=== PATIENT | male | born 1945 | race Caucasian/White ===

== ENCOUNTER → 2023-10-07 15:33 | Outpatient (REF) | payer OTHER, SELFPAY | LOC: RAD 15:33 | PROVIDERS: ATTENDING PHYSICIAN Student in an Organized Health Care Education/Training Program | DX: R05.3 Chronic cough (principal) | CPT/HCPCS: 71046 ==

== ENCOUNTER → 2023-10-23 12:45 | Outpatient (REF) | payer OTHER, SELFPAY | LOC: MRI 3T 12:45 | PROVIDERS: ATTENDING PHYSICIAN Orthopaedic Surgery; FAMILY PHYSICIAN Student in an Organized Health Care Education/Training Program | DX: M25.559 Pain in unspecified hip (principal); M16.0 Bilateral primary osteoarthritis of hip | CPT/HCPCS: 73721 ==

== ENCOUNTER 2023-12-07 07:00 | Inpatient (IN) | payer OTHER, SELFPAY ==
[2023-11-14 15:01] LABS: Hematocrit 41.8 % (39.0-52.0); Hemoglobin 14.7 g/dL (13.0-18.0); Mean Corp Hgb Conc. 35.2 g/dL (33.0-37.0); Mean Corpuscular Hgb 33.2 pg (27.0-31.0); Mean Corpuscular Volume 94.4 fL (80.0-94.0); Mean Platelet Volume 11.2 fL (7.4-10.4); Platelet Count 193 10^3/uL (130-400); Red Blood Cell Count 4.43 10^6/uL (4.70-6.10); White Blood Cell Count 8.3 10^3/uL (4.8-10.8)
[2023-11-14 15:36] LABS: ALT (SGPT) 21 U/L (0-50); AST (SGOT) 23 U/L (17-59); Albumin 4.6 g/dl (3.5-5.0); Alkaline Phosphatase 72 U/L (38-126); Blood Urea Nitrogen 19 mg/dl (9-20); Calcium 9.9 mg/dl (8.4-10.2); Carbon Dioxide 21 mmol/L (22-30); Chloride 106 mmol/L (98-107); Glucose 88 mg/dl (70-99); Potassium 4.1 mmol/L (3.5-5.1); Sodium 138 mmol/L (135-145); Total Bilirubin 0.3 mg/dl (0.2-1.3); Total Protein 7.1 g/dl (6.3-8.2); eGFR > 60.00
[2023-11-15 09:23] LABS: Glycohemoglobin (HgbA1c) 6.7 % (4.0-5.6)
[2023-12-07] VITALS (14 sets, daily range): BP systolic 92–143; BP diastolic 56–85; PULSE 80; O2SAT 94; BMI 32.1
[2023-12-07] MEDS: CELEBREX 200 MG PO (07:24)
[2023-12-07] MEDS: TYLENOL 650 MG PO ×5 (07:24→23:35)
[2023-12-07 07:44] LABS: Glucose - Point of Care 179 mg/dl (70-99)
[2023-12-07] MEDS: NORMOSOL-R/PLASMALYTE-A 1000 IV ×2 (07:48→10:30)
--- NOTE | 2023-12-07 08:31 | W.DS.TRANS ---
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
-
Discharge Instructions:
Sleep Apnea Risk High
Discharge Diagnosis/Procedures R VIRGILIO Aquino 12/07/23
Diet Diabetic, Carb Controlled
Activity With Walker
Driving Restrictions No driving
Bathing Restrictions OK to Shower
Other Services PT
Instructions:
Stand-Alone Forms:
Changes to Home Medications: Yes
Discharge Medications:
DC Medications w/original date entered in [facility]
lisinopril 20 mg tablet 20 mg PO DAILY ##0 04/04/13
simvastatin 40 mg tablet 40 mg PO DAILY ##0 04/04/13
Vitamin B Complex 100 No.2 1 tab PO DAILY 04/24/17
glyburide 1.25 mg tablet 5 mg PO DAILY 04/24/17
metformin 500 mg tablet 1,000 mg PO BID 04/24/17
budesonide 160 mcg-glycopyr 9 mcg-formot 4.8 mcg/actuation HFA inhaler (Breztri Aerosphere) 2 inh inhalation BID 12/01/23
mupirocin 2 % ointment topical kit 1 applic topical BID 12/01/23
vit C 250 mg-vit E 90 mg-zinc 40 mg-copper 1 [id number] capsule (PreserVision AREDS-2) 1 tab PO BID 12/01/23
Saccharomyces boulardii 250 mg capsule (Florastor) 250 mg PO BID #1 cap 12/07/23
acetaminophen 325 mg capsule (Tylenol) 650 mg (2 x 325 mg) PO QID #2 caps 12/07/23
acetaminophen 500 mg tablet 1,000 mg (2 x 500 mg) PO QID #0 tabs 12/07/23
aspirin 325 mg tablet 325 mg PO DAILY blood clot prevention #1 tab 12/07/23
cefadroxil 500 mg capsule 500 mg PO BID infection prevention #14 caps 12/07/23
celecoxib 200 mg capsule 200 mg PO DAILY anti-inflammatory #14 caps 12/07/23
docusate sodium 100 mg capsule (Colace) 100 mg PO BID stool softner #1 cap 12/07/23
ondansetron 4 mg disintegrating tablet 4 mg PO Q6H PRN n/v #20 tabs 12/07/23
oxycodone 5 mg tablet 5 mg PO Q6H PRN 1 tab moderate pain, 2 tabs severe pain #30 tabs 12/07/23
sennosides 8.6 mg tablet (Senokot) 17.2 mg (2 x 8.6 mg) PO BID laxative #2 tabs 12/07/23
Home Medication Changes
aspirin 325 mg tablet 325 mg PO DAILY blood clot prevention #1 tab 12/07/23
cefadroxil 500 mg capsule 500 mg PO BID infection prevention #14 caps 12/07/23
celecoxib 200 mg capsule 200 mg PO DAILY anti-inflammatory #14 caps 12/07/23
ondansetron 4 mg disintegrating tablet 4 mg PO Q6H PRN n/v #20 tabs 12/07/23
oxycodone 5 mg tablet 5 mg PO Q6H PRN 1 tab moderate pain, 2 tabs severe pain #30 tabs 12/07/23
Pending Results: No
[2023-12-07 10:09] LABS: Glucose - Point of Care 156 mg/dl (70-99)
[2023-12-07] MEDS: ROXICODONE 5 MG PO ×2 (10:33→17:48)
--- NOTE | 2023-12-07 11:22 | PTCARENOTE ---
Patient received from PACU in bed; IVF infusing; Surgical site assessed with REFRIGERATION SUPERVISOR, right hip aquacell clean, dry, and intact; Bilateral pedal pulses weak to palpation; Toes cool to the touch, warm blankets applied; Capillary refill bilateral toes
<3 seconds; Patient able to wiggle toes on the left foot, not currently able to wiggle toes on the right; Patient on 2L nasal cannula, oxygen saturation 94%; Patient denies pain at this time; Patient denies nausea/vomiting at this time; Call laura
within reach; Spouse at bedside; Bed in lowest position, wheels locked; Assessment ongoing
[2023-12-07 11:30] LABS: Glucose - Point of Care 178 mg/dl (70-99)
[2023-12-07] MEDS: LIPITOR 20 MG PO (13:01)
[2023-12-07] MEDS: GLUCOPHAGE 1000 MG PO ×2 (13:01→19:48)
[2023-12-07] MEDS: NOVOLOG FLEXPEN-MODERATE RESISTANCE 1 UNITS SC ×2 (13:02→16:58)
[2023-12-07] MEDS: MICRONASE 5 MG PO (13:51)
[2023-12-07] MEDS: ANCEF 5 IV ×2 (15:00→23:35)
[2023-12-07 16:39] LABS: Glucose - Point of Care 190 mg/dl (70-99)
[2023-12-07] MEDS: ASPIRIN 325 MG PO (17:00)
[2023-12-07] MEDS: SYMBICORT 160/4.5 MCG INHALER INH (19:20)
[2023-12-07] MEDS: SENOKOT 17.2 MG PO (19:43)
[2023-12-07] MEDS: TORADOL 15 MG IV (19:43)
[2023-12-07] MEDS: COLACE 100 MG PO (19:43)
[2023-12-07] MEDS: BACTROBAN 2% OINTMENT 1 APPLIC NASAL (19:49)
[2023-12-07 21:39] LABS: Glucose - Point of Care 195 mg/dl (70-99)
[2023-12-07] MEDS: NEURONTIN 300 MG PO (21:41)
[2023-12-08] VITALS (7 sets, daily range): BP systolic 95–160; BP diastolic 54–85; PULSE 88–96; O2SAT 92
[2023-12-08] MEDS: DILAUDID 0.5 MG IV (02:36)
[2023-12-08] MEDS: TYLENOL 650 MG PO ×3 (04:09→12:48)
[2023-12-08] MEDS: ROXICODONE 10 MG PO ×3 (04:14→12:48)
[2023-12-08] MEDS: SPIRIVA RESPIMAT 2.5 MCG 2 PUFF INH (07:06)
[2023-12-08] MEDS: SYMBICORT 160/4.5 MCG INHALER 2 PUFF INH (07:07)
[2023-12-08 08:12] LABS: Glucose - Point of Care 115 mg/dl (70-99)
[2023-12-08] MEDS: NOVOLOG FLEXPEN-MODERATE RESISTANCE SC (08:14)
[2023-12-08] MEDS: ASPIRIN 325 MG PO (08:32)
[2023-12-08] MEDS: CELEBREX 200 MG PO (08:32)
[2023-12-08] MEDS: SENOKOT 17.2 MG PO (08:33)
[2023-12-08] MEDS: TORADOL 15 MG IV (08:33)
[2023-12-08] MEDS: LIPITOR 20 MG PO (08:33)
[2023-12-08] MEDS: GLUCOPHAGE 1000 MG PO (08:33)
[2023-12-08] MEDS: MICRONASE 5 MG PO (08:33)
[2023-12-08] MEDS: COLACE 100 MG PO (08:33)
[2023-12-08] MEDS: BACTROBAN 2% OINTMENT 1 APPLIC NASAL (08:39)
[2023-12-08 11:07] LABS: Glucose - Point of Care 169 mg/dl (70-99)
[2023-12-08] MEDS: NOVOLOG FLEXPEN-MODERATE RESISTANCE 1 UNITS SC (11:57)
--- NOTE | 2023-12-08 12:28 | W.PN.ORTHO ---
Today's Communication / Plan
-
d/c
Assessment
.
Distal Motor Intact: Yes
Dressing:
Clean, dry and intact.
Plan
.
Surgery / Date: Elpidio Aquino 12/07/23
DVT Prophylaxis: Aspirin
Activity:
Out of bed.
PT/OT
Discharge Plan: Home w/ Outpatient PT
Subjective
.
.:
Patient resting comfortably.
Vital Signs and Labs
.
Vital Signs and Labs:
Lab Results
11/14/23 13:19
11/14/23 13:19
Temp Pulse Resp BP Pulse Ox
98.0 F 83 18 114/62 92
12/08/23 11:00 12/08/23 11:00 12/08/23 11:00 12/08/23 11:00 12/08/23 11:00
Non-invasive Hgb result: 12.8
Physical Exam
-
HEENT: No pallor, cyanosis, or jaundice. Throat clear.
NECK: Supple. No JVD.
RESPIRATORY: Lungs clear to auscultation.
CVS: S1, S2 normal. RRR.� No murmur, rub or gallop.
ABDOMEN: Soft, non-tender. No distension. BS+/normal.
EXTREMITIES: strength equal, no calf pain with palpation
COMPUTER SYSTEMS ENGINEER: AOx3. No focal deficits. compliance monitor grossly intact
--- NOTE | 2023-12-08 13:44 | CM ---
Met with pt and his at bedside
Pt reports he lives with his in a ranch style home with 1 step to enter
Independent with ADL's, drives, retired
DME - cane, walker, raised toilet seat
SNF - denies past hx
HH - denies past hx
Has ride at discharge
PCP - Dr Marcus Munoz
Pharm - [facility]
Plan is for outpatient PT. Given Rx. Has appointment scheduled
Plan - anticipate home with outpatient PT when medically stable
== END 2023-12-08 16:00 | disposition home or self-care (01) | DRG 470 ==
LOC: 2 SOUTH 07:00
PROVIDERS: ADMITTING PHYSICIAN Orthopaedic Surgery; FAMILY PHYSICIAN Student in an Organized Health Care Education/Training Program
PROC: 0SR904A Replacement of Right Hip Joint with Ceramic on Polyethylene Synthetic Substitute, Uncemented, Open Approach (ICD-10-PCS; 2023-12-07)
DX: M16.11 Unilateral primary osteoarthritis, right hip (principal); E66.01 Morbid (severe) obesity due to excess calories; E11.9 Type 2 diabetes mellitus without complications; E78.5 Hyperlipidemia, unspecified; I10 Essential (primary) hypertension; Z82.49 Family history of ischemic heart disease and other diseases of the circulatory system; Z82.0 Family history of epilepsy and other diseases of the nervous system; Z87.891 Personal history of nicotine dependence; Z87.01 Personal history of pneumonia (recurrent); Z79.82 Long term (current) use of aspirin; Z79.1 Long term (current) use of non-steroidal anti-inflammatories (NSAID); Z79.84 Long term (current) use of oral hypoglycemic drugs; Z79.51 Long term (current) use of inhaled steroids; Z86.010 Personal history of colon polyps; Z68.32 Body mass index [BMI] 32.0-32.9, adult
CPT/HCPCS: 36415; 73502; 80053; 82962; 83036; 85027; 87070; 93005; 94640; 97110; 97116; 97162; 97166; 97530; 97535; C1776

== ENCOUNTER 2024-03-26 11:57 | Inpatient (IN) | payer OTHER, SELFPAY ==
[2024-03-25 22:52] VITALS: BP 159/99
[2024-03-26] VITALS (20 sets, daily range): BP systolic 106–163; BP diastolic 56–94; PULSE 91–99; BMI 31.3; BMI 31.2
--- NOTE | 2024-03-26 00:42 | EDRN ---
slipped out of bed. This is the third fall since R hip replacement. R hip 12/07/23. Pt states that he has pain in that R hip area. Last fall pt hit his head R side. Area ecchymotic. Pt does not know why he slipped out of bed. unable to get him
off the floor. Pt able to stand. Pt shuffling his feet when he walks. Pt unsure of how he slipped out of bed.
--- NOTE | 2024-03-26 01:13 | ED.GENMED ---
History of Present Illness
General
Chief Complaint: Fall
Source: patient and spouse
Exam Limitations: none
Time Seen by Provider: 03/26/24 00:50
History of Present Illness
History of Present Illness:
This is a 78 year old male that comes in with by ambulance with c/o fall. States that tonight he got up to go to the bathroom. States that he turned on the lights and then next thing he knew they were trying to get him up of the floor. States that
he doesn't remember falling. states that on Tuesday he was Annelise and he fell then and doesn't remember. States that someone there had to help get him up. States that he did have a headache on Tuesday before that fall. States that he has had
diarrhea occasionally. Denies any fever, chills, chest pain, SOB, abd pain, nausea, vomiting, dizziness, urinary burning.
Past History
Past History
ED Past Medical History: HTN, Hypercholesterolemia, NIDDM and Other (Chronic cough, Macular degeneration, )
ED Past Surgical History: Appendectomy and Orthopedic (Right foot bunionectomy, Right hip replacement )
Social History
Tobacco: Smoker
Alcohol: Occasional
Personal:
Living: with family
Family History
Family History: Unable to obtain
Review of Systems
Review of Systems
All Other Systems: ROS reviewed and negative except as documented in HPI and ROS
Constitutional: Reports no symptoms; Denies fever or chills
EENT: Reports no symptoms
Respiratory: Reports no symptoms; Denies cough or trouble breathing
Cardiac: Reports no symptoms; Denies chest pain
ABD/GI: Reports diarrhea; Denies abdominal pain, nausea or vomiting
: Reports no symptoms; Denies dysuria, frequency or urgency
Musculoskeletal: Reports no symptoms
Skin: Reports no symptoms
Neurological: Reports headache (On Tuesday with first fall); Denies dizzy
Psychiatric: Reports no symptoms
Phy Exam
General Physical Exam
General Presentation: no apparent distress
General age: appears stated age
General Skin: warm and dry
General Habitus: elderly
General Mental: alert
General Hydration: appears well hydrated
ENT Exam
ENT Exam: TM's normal, pharynx normal and neck supple
Eye Exam
Eye Exam: EOMI
Cardiovascular Exam
Cardiovascular Exam: regular rate/rhythm, no edema and normal peripheral pulses
Pulmonary Exam
Pulmonary Exam: no respiratory distress, chest non tender, no rhonchi, no wheezing, no cough and other (fine crackles at bases)
Gastrointestinal Exam
Gastrointestinal Exam: normal bowel sounds, non tender, soft, no organomegaly, no pulsatile mass and non distended
Musculoskeletal Exam
Musculoskeletal Exam: full ROM and no edema
Skin Exam
Skin Exam: normal color, warm/dry, no rash, no petechia and other (Old bruising noted around right lateral forehead and eye onto upper cheek. )
Psychiatric Exam
Psychiatric Exam: normal mood/affect
Course
Orders/Labs/Results
Orders:
Orders
03/26/24 00:09
CR Hip - RT w/wo Pel 2-3 Vw* Urgent
Reason For Exam: fall, injury, and pain
Include a pelvis x-ray?: Yes
03/26/24 01:11
CT Head W/o Iv Contrast Urgent
Comment:
Reason For Exam: Frequent falls, headache
Urinalysis Reflex To Culture Urgent
CR Chest - 2 Views Urgent
Comment:
Reason For Exam: weakness.
03/26/24 01:12
Electrocardiogram (*1) Urgent
Reason for Study: Syncope
EKG- Treatment ONCE
0.9% Sodium Chloride 500 ml [Nss] 500 ml IV BOLUS
03/26/24 01:16
Orthostatic VS- Treatment ONCE
03/26/24 01:20
Complete Blood Count/With Diff Urgent
Comprehensive Metabolic Panel Urgent
Troponin I Urgent
Abnormal Lab Results
03/26/24
01:20
WBC 12.6 H 10^3/uL
(4.8-10.8)
RBC 4.34 L 10^6/uL
(4.70-6.10)
MCH 32.3 H pg
(27.0-31.0)
MPV 10.6 H fL
(7.4-10.4)
Abs Immat Gran (auto) 0.1 H 10^3/uL
(0-0.05)
Absolute Neuts (auto) 10.1 H 10^3/uL
(1.4-6.5)
Absolute Monos (auto) 1.1 H 10^3/uL
(0.1-0.6)
Neutrophils % 79.9 H %
(42.2-75.2)
Lymphocytes % 10.9 L %
(20.5-51.1)
Glucose 157 H mg/dl
(70-99)
Troponin I 0.040 H* ng/ml
03/26/24 01:20
03/26/24 01:20
Leukocytosis, Hyperglycemia. Troponin elevated at 0.040
Vital Signs
Initial and Last Documented VS:
Initial Vital Signs
Temp Pulse Resp BP Pulse Ox
99.5 F 127 20 159/99 98
03/25/24 22:52 03/25/24 22:52 03/25/24 22:52 03/25/24 22:52 03/25/24 22:52
Last Documented Vital Signs
Temp Pulse Resp BP Pulse Ox
99.5 F 99 23 159/99 95
03/25/24 22:52 03/26/24 00:56 03/26/24 00:56 03/25/24 22:52 03/26/24 00:56
MDM/Problems Addressed
Differential Diagnosis Includes:
UTI, Orthostatic hypotension. Dehydration.
MDM/Problems Addressed:
This is a 78 year old male that comes in with c/o fall. States that he fell on Tuesday and he went to go to the Bathroom and turned on the light and then next thing he knew they were trying to get him up. States that he doesn't remember
what happened.
Will check labs. CT head, Urine and give IV fluids.
Back into see patient and . Explained that his Troponin is slightly elevated and this is the second Time that he has fallen and doesn't remember. Will admit for further evaluation. Hospitalist notified.
Chronic conditions affecting care: DM
Acute Exacerbation and/or Progression of Chronic Illness:
NA
*Radiology
Radiology exam reviewed: preliminary read by ED provider (Chest- negative for active disease. Right hip- Prosthesis noted, No acute fracture. ) and radiology read reviewed (CT head- night hawk-No acute hemorrhage, herniation, or hydrocephalus. No
calvarial fracture. Left maxillary sinus mucosal thickening. )
*Pulse Oximetry
Patient hypoxic: no
*EKG
Interpreted by ED Provider?: Yes
Heart Rate: 95
Rate: normal
Rhythm: sinus
[place]: normal axis
Interval: normal interval
QRS Pattern: normal QRS
Ischemia: no ischemia
*Assistant Chief Of Police Interpretation
Rate: tachycardiac
Heart Rate: 100
Rhythm: sinus tachycardia
*Critical Care Note
Total Time (30-74mins, 75-104mins- exclusive of procedures): Not Applicable
ED Attending Note
-
Portions of this chart may have been created with voice recognition software.� Occasional wrong word or��sound alike� substitutions may have occurred due to the inherent limitations of voice recognition software.
Discharge Plan
Departure
Patient Disposition: Admit
Date of Disposition: 03/26/24
Time of Disposition: 03:01
Admit to: Telemetry
Presentation/result/management discussed w/ accepting MD/DO: Hospitalist
Patient with high blood pressure during this ER visit?: Yes
Condition: Good
Covid-19: Not Applicable
Discharge Problem:
Syncope and collapse, Elevated troponin
Prescriptions:
No Action
lisinopril 20 MG tablet
20 mg PO DAILY Qty: 0 0RF
Rx Instructions:
One tab by mouth daily.
simvastatin 40 MG tablet
40 mg PO DAILY Qty: 0 0RF
Rx Instructions:
One tab by mouth every evening.
glyburide 1.25 MG tablet
5 mg PO DAILY
Vitamin B Complex 100 No.2
1 tab PO DAILY
metformin 500 MG tablet
1,000 mg PO BID
PreserVision AREDS-2 250-90-40-1 mg Capsule
1 tab PO BID
Breztri Aerosphere 160-9-4.8 mcg/actuation Hfa Aerosol Inhaler
2 inh INHALATION BID
mupirocin 2 % Ointment Kit
1 applic TOPICAL BID
Patient Comments:
BID for 3 days, last dose this am
aspirin 325 mg tablet
325 mg PO DAILY Qty: 1 0RF
Rx Instructions:
Take with food
docusate sodium [Colace] 100 mg capsule
100 mg PO BID Qty: 1 0RF
cefadroxil 500 mg capsule
500 mg PO BID Qty: 14 0RF
Rx Instructions:
*Take w/ food
*Take w/ probiotic
*POST-OP USE
Saccharomyces boulardii [Florastor] 250 mg capsule
250 mg PO BID Qty: 1 0RF
celecoxib 200 mg capsule
200 mg PO DAILY Qty: 14 0RF
Rx Instructions:
*take with food
*space out 2 hours from aspirin
sennosides [Senokot] 8.6 mg tablet
17.2 mg PO BID Qty: 2 0RF
ondansetron [ondansetron] 4 mg tablet,disintegrating
4 mg PO Q6H PRN (Reason: n/v) Qty: 20 0RF
Rx Instructions:
take 1/2h b/f pain med if recurrent nausea
allow to dissolve in mouth w/o water
oxycodone 5 mg tablet
5 mg PO Q6H PRN (Reason: 1 tab moderate pain, 2 tabs severe pain) Qty: 30 0RF
Rx Instructions:
Ongoing therapy
acetaminophen [Tylenol] 325 mg capsule
650 mg PO QID Qty: 2 0RF
acetaminophen 500 mg Tablet
1,000 mg PO QID Qty: 0 0RF
Referrals:
Julia Munoz MD [Family Provider] -
Interventions
Interventions:
*Risk Screen - Suicide Last Done: 03/25/24 22:56
*General Assessment Last Done: 03/26/24 00:38
*Neglect/Abuse Screening Last Done: 03/25/24 22:56
ED- Fall Risk Assessment Last Done: 03/26/24 00:38
*ED COVID-19 Vaccine History Last Done: 03/25/24 22:56
ED-Musculoskeletal Assessment Last Done: 03/26/24 00:38
ED- Neurological Assessment Last Done: 03/26/24 00:38
ED-Skin Assessment Last Done: 03/26/24 00:38
Discharge Date and Time
Print Language: BELARUSIAN
[2024-03-26 01:35] LABS: % Basophils 0.2 % (0-2); % Eosinophils 0.2 % (0-6); % Immature Granulocytes 0.4 % (0-0.5); % Lymphocytes 10.9 % (20.5-51.1); % Monocytes 8.4 % (1.7-9.3); % Neutrophils 79.9 % (42.2-75.2); Absolute Immature Granulocytes 0.1 10^3/uL (0-0.05); Absolute Lymphocytes 1.4 10^3/uL (1.2-3.4); Absolute Monocytes 1.1 10^3/uL (0.1-0.6); Absolute Neutrophils 10.1 10^3/uL (1.4-6.5); Hematocrit 40.2 % (39.0-52.0); Mean Corp Hgb Conc. 34.8 g/dL (33.0-37.0); Mean Corpuscular Hgb 32.3 pg (27.0-31.0); Mean Corpuscular Volume 92.6 fL (80.0-94.0); Mean Platelet Volume 10.6 fL (7.4-10.4); Nucleated Red Blood Cells % 0 % (-); Platelet Count 180 10^3/uL (130-400); Red Blood Cell Count 4.34 10^6/uL (4.70-6.10); Red Cell Dist. Width 12.6 % (11.5-14.5); White Blood Cell Count 12.6 10^3/uL (4.8-10.8)
[2024-03-26 01:53] LABS: ALT (SGPT) 21 U/L (0-50); AST (SGOT) 23 U/L (17-59); Albumin 4.3 g/dl (3.5-5.0); Alkaline Phosphatase 56 U/L (38-126); Blood Urea Nitrogen 20 mg/dl (9-20); Calcium 10.1 mg/dl (8.4-10.2); Carbon Dioxide 22 mmol/L (22-30); Chloride 102 mmol/L (98-107); Estimated Creatinine Clearance 102 ml/min; Glucose 157 mg/dl (70-99); Potassium 3.8 mmol/L (3.5-5.1); Sodium 137 mmol/L (135-145); Total Bilirubin 0.6 mg/dl (0.2-1.3); Total Protein 6.9 g/dl (6.3-8.2); eGFR > 60.00
[2024-03-26] MEDS: NSS 500 IV (02:02)
--- NOTE | 2024-03-26 03:22 | HPS.HSE ---
Family Physician
-
Family Physician: Julia Munoz MD
Chief Complaint
-
Syncopal episode
History of Present Illness
This is a 78-year-old male with past medical history significant for [id number]-[id number] diabetes, hypertension, obesity presenting to the emergency department following episode of collapse.
Patient is unable to provide details because he does not remember the event. He reports being in usual state of health the evening prior to the event. For the last he remembered was trying to get up to reach for right and then finding himself on
the floor with EMS and his spouse surrounding him. He does not remember feeling dizzy. Denied having any chest pain. He denied any recent exertional dyspnea. He denies any recent episodes of palpitations. He denied any nausea vomiting or
diaphoresis. Patient denies any history of seizures. Status post fall the patient was immediately alert and oriented again but could not get up. There was no loss of bladder or bowel continence.
He reported that approximately 4 days ago he had a mechanical fall. He slipped and hit his forehead on the floor. He had minor bruises and a headache but then felt better afterwards and was able to carry on without any other symptoms. He also
reports having a fall about 10 days ago at this time slipping backwards and hitting the back of his head. He denies any numbness tingling or weakness. He denies any changes in the bowel or bladder habits. Patient denies any melena or
hematochezia. He has no known sick contact. He denies any recent cold cough or flulike illness. He has been no medication changes. Per records states that on Tuesday he was Annelise and he fell then and doesn't remember. States that someone
there had to help get him up. States that he did have a headache on Tuesday before that fall.
In the emergency department he was afebrile, blood pressure was 160/99 with a pulse of 90, ECG showed a normal sinus rhythm. Known inferior Q waves present since 2012. His troponin was 0.04. CBC was unremarkable with a slight leukocytosis to
12,000. Electrolytes BUN/creatinine were within the normal range. Chest x-ray was clear. CT of the head shows no acute intracranial process. Hip x-ray without any fracture.
Medical History
Past Medical History
Past Medical History: Reports HTN and NIDDM
Past Surgical History: Reports Appendectomy
Social History
Tobacco: Former Smoker
Alcohol: Occasional
Drug: None
Personal:
Living: With Family
Employment: Retired
Family History
Family History: Not pertinent
Allergies / Home Medications
Allergies reflects when Allergies were last updated in [facility].
Home Medications with original date entered in [facility]
Allergy/Medication List:
Allergies
Allergy/AdvReac Type Severity Reaction Status Date / Time
No Known Allergies Allergy Verified 12/07/23 07:51
Home Medications
lisinopril 20 mg tablet 20 mg PO DAILY ##0 04/04/13
simvastatin 40 mg tablet 40 mg PO DAILY ##0 04/04/13
Vitamin B Complex 100 No.2 1 tab PO DAILY 04/24/17
glyburide 1.25 mg tablet 5 mg PO DAILY 04/24/17
metformin 500 mg tablet 1,000 mg PO BID 04/24/17
budesonide 160 mcg-glycopyr 9 mcg-formot 4.8 mcg/actuation HFA inhaler (Breztri Aerosphere) 2 inh inhalation BID 12/01/23
mupirocin 2 % ointment topical kit 1 applic topical BID 12/01/23
vit C 250 mg-vit E 90 mg-zinc 40 mg-copper 1 [id number]-nporcw capsule (PreserVision AREDS-2) 1 tab PO BID 12/01/23
Saccharomyces boulardii 250 mg capsule (Florastor) 250 mg PO BID #1 cap 12/07/23
acetaminophen 325 mg capsule (Tylenol) 650 mg (2 x 325 mg) PO QID #2 caps 12/07/23
acetaminophen 500 mg tablet 1,000 mg (2 x 500 mg) PO QID #0 tabs 12/07/23
aspirin 325 mg tablet 325 mg PO DAILY blood clot prevention #1 tab 12/07/23
cefadroxil 500 mg capsule 500 mg PO BID infection prevention #14 caps 12/07/23
celecoxib 200 mg capsule 200 mg PO DAILY anti-inflammatory #14 caps 12/07/23
docusate sodium 100 mg capsule (Colace) 100 mg PO BID stool softner #1 cap 12/07/23
ondansetron 4 mg disintegrating tablet 4 mg PO Q6H PRN n/v #20 tabs 12/07/23
oxycodone 5 mg tablet 5 mg PO Q6H PRN 1 tab moderate pain, 2 tabs severe pain #30 tabs 12/07/23
sennosides 8.6 mg tablet (Senokot) 17.2 mg (2 x 8.6 mg) PO BID laxative #2 tabs 12/07/23
Review of Systems
-
History Source: Patient
Constitutional: Reports No Symptoms
EENT: Reports No Symptoms
Respiratory: Reports No Symptoms
Cardiac: Reports No Symptoms
Abdomen/GI: Reports No Symptoms
: Reports No Symptoms
Musculoskeletal: Reports No Symptoms
Skin: Reports No Symptoms
Neurological: Reports No Symptoms
Endocrine: Reports No Symptoms
Hematologic/Lymphatic: Reports No Symptoms
Psych: Reports No Symptoms
Physical Exam
Vital Signs
Vital Signs
Temp Pulse Resp BP Pulse Ox
99.5 F 99 23 159/99 95
03/25/24 22:52 03/26/24 00:56 03/26/24 00:56 03/25/24 22:52 03/26/24 00:56
Physical Exam
General: Well Developed, No Apparent Distress, Comfortable and Conversant
HEENT: NormoCephalic, Anicteric, Moist mucous membranes, PERRLA, Neck Nontender and Other (mild forehead bruise)
Respiratory: Clear
Cardiac: S1/S2 and Regular Rhythm
Breast: Deferred by me
GI: Soft, Non Tender, Normal Bowel Sounds and Distended
Rectal: Deferred by Provider
Genito-urinary: Deferred by me
Musculoskeletal: No Clubbing, No Cyanosis and No Edema
Skin: Warm
Neuro: AO x 3, No Motor Deficits and Nonfocal/grossly intact
Hematologic/Lymphatic: No Lymphadenopathy
Psych: Calm
Laboratory Results
-
03/26/24 01:20
03/26/24 01:20
Laboratory Results
Total Bilirubin 0.6 mg/dl (0.2-1.3) 03/26/24 01:20
AST 23 U/L (17-59) 03/26/24 01:20
ALT 21 U/L (0-50) 03/26/24 01:20
Alkaline Phosphatase 56 U/L (38-126) 03/26/24 01:20
Troponin I 0.040 ng/ml H* 03/26/24 01:20
Data Reviewed
-
Diagnostic Radiology: Image Personally Visualized and interpreted
CT Scan: Report Reviewed by me
Medical Tests (Nuc Med, Echo, EKG etc): Image Personally Visualized and interpreted
Lab Data: Labs Reviewed by me
Old Records: Reviewed
Impression/Plan
-
IMPRESSION:
Patient with syncopal episode today and collapse. He has had 3 falls in the last 10 days most of which cannot be fully explained. Patient denies any antecedent symptoms before the falls. He has not had prior falls for these recent episodes.
Neurologically intact otherwise. Troponin was 0.04 today. ECG is unremarkable. Labs are also within normal limits.
PLAN:
1. Syncope - No prior syncopal episode. Not post-ictal. No focal deficits. Given collapse w/o antecedent memory concern for cardiac arrythmia but has no h/o CAD no symptoms c/w CAD, paroxysmal rhythms. No evidence of volume losses and appears
euvolemic on examination.
- admit to telemetry observation
- cycle cardiac enzymes
- echo
- orthostatic v/s
- check carotid u/s
- may need continued ambulatory monitoring
2. Recurrent falls - possibly related to syncopal event vs ambulatory dysfunction. No focal deficits.
- syncope eval as above
- pt evaluation
3. HTN
- continue lisinopril unless orthostatic
4. DM II
- hold metformin
- continue glyubride 5 daily with low dose sliding scale
DVT PPX - lovenox sq
Code status - full code
--- NOTE | 2024-03-26 05:38 | PTCARENOTE ---
Pt arrive to [facility] at 0455 from the ED on a stretcher. Full head to toe assessed. Admission questions answered. Pt oriented to room and call laura. Bed locked and in lowest position. Care ongoing.
[2024-03-26 05:53] LABS: Troponin I 0.054 ng/ml
[2024-03-26 06:24] LABS: Urine Albumin 1+ (Neg - Trace); Urine Bilirubin Negative (Negative); Urine Character Clear (Clear); Urine Color Amber; Urine Glucose Negative (Negative); Urine Ketone Trace (Negative); Urine Leukocyte Negative (Negative); Urine Nitrite Negative (Negative); Urine Occult Blood Negative (Negative); Urine Specific Gravity 1.025 (<1.030); Urine Urobilinogen Negative (Neg - 1+)
[2024-03-26 07:05] LABS: Urine Amorphous Seen; Urine Mucus Moderate; Urine Red Blood Cell 0-2 /HPF (0-2); Urine Squamous Cell >30 /LPF (Few); Urine White Cell 0-2 /HPF (0-5)
[2024-03-26 07:06] LABS: Urine Bacteria Moderate (Negative); Urine Calcium Oxalate Crystals Seen
[2024-03-26 07:27] LABS: HDL Cholesterol 43 mg/dl; LDL Cholesterol, Calculated 65 mg/dl; Total Cholesterol 125 mg/dl (50-199); Triglyceride 88 mg/dl (10-149); Very Low Density Lipoprotein 17 mg/dl (0-30)
[2024-03-26 07:28] LABS: Troponin I 0.057 ng/ml
[2024-03-26 08:48] LABS: Glucose - Point of Care 140 mg/dl (70-99)
[2024-03-26] MEDS: NOVOLOG FLEXPEN-LOW RESISTANCE SC ×3 (08:54→18:18)
[2024-03-26] MEDS: MICRONASE 5 MG PO (09:21)
[2024-03-26] MEDS: LIPITOR 20 MG PO (09:21)
[2024-03-26] MEDS: ZESTRIL 20 MG PO (09:21)
--- NOTE | 2024-03-26 11:37 | CON.CAR ---
Addendum entered and electronically signed by Andrea Watt MD 03/26/24 14:06:
Patient seen and examined in collaboration with [facility]; agree with below.
-78-year-old male with hypertension, hyperlipidemia, diabetes, and chronic cigarette smoking presenting after a syncopal event at home.
-Transthoracic echocardiogram today revealed an LVEF of 60%, but basal to mid inferior and inferolateral hypokinesis/akinesis.
-Troponins very mildly elevated; possible subacute infarct (NSTEMI).
-Will arrange cardiac catheterization today for definitive coronary assessment.
-Heparin drip.
-Keep NPO.
Original Note:
Consultation
Consultation Request
Date/Time Consultation Requested: 03/26/2024 11:15
Date/Time Consultation Performed: 03/26/2024 11:30
Requesting Provider: Dr. Leon
Performing Provider: OMAYRA Alfonso for Dr. Watt
Reason for Consultation: Abnormal echocardiogram
Medical History
-
Chief Complaint: Fall
History of Present Illness:
Dona Alvarez is a 78-year-old male with hypertension, dyslipidemia, NIDDM, and macular degeneration who presented to the emergency department early this morning with a chief complaint of a fall. He sustained a fall while in [facility] on 03/21/2024.
Then yesterday he got up to use the bathroom and he fell. He does not recall the full event. No associated symptoms of chest pain, shortness of breath, nor dizziness. He was found to have an abnormal troponin which prompted an echocardiogram.
His echocardiogram was then abnormal which prompted cardiology consultation.
His was present for this consultation.
Past Medical History
Past Medical History: HTN, Hypercholesterolemia and NIDDM
Past Surgical History: Appendectomy and Orthopedic
Social History
Personal:
Living: With Family ()
Employment: Retired
Family History
Family History: Reviewed & Not Pertinent
Allergies / Home Medications
Allergy/AdvReac Type Severity Reaction Status Date / Time
No Known Allergies Allergy Verified 12/07/23 07:51
�Medication �Instructions �Recorded �Confirmed �Type
lisinopril 20 mg tablet 20 mg PO DAILY ##0 04/04/13 12/07/23 Rx
simvastatin 40 mg tablet 40 mg PO DAILY ##0 04/04/13 12/07/23 Rx
Vitamin B Complex 100 No.2 1 tab PO DAILY 04/24/17 12/07/23 History
glyburide 1.25 mg tablet 5 mg PO DAILY 04/24/17 12/07/23 History
metformin 500 mg tablet 1,000 mg PO BID 04/24/17 12/07/23 History
budesonide 160 mcg-glycopyr 9 2 inh inhalation BID 12/01/23 12/07/23 History
mcg-formot 4.8 mcg/actuation HFA
inhaler (Breztri Aerosphere)
mupirocin 2 % ointment topical kit 1 applic topical BID 12/01/23 12/07/23 History
vit C 250 mg-vit E 90 mg-zinc 40 1 tab PO BID 12/01/23 12/07/23 History
mg-copper 1 [id number]
capsule (PreserVision AREDS-2)
Saccharomyces boulardii 250 mg 250 mg PO BID #1 cap 12/07/23 Rx
capsule (Florastor)
acetaminophen 325 mg capsule 650 mg (2 x 325 mg) PO QID #2 caps 12/07/23 Rx
(Tylenol)
acetaminophen 500 mg tablet 1,000 mg (2 x 500 mg) PO QID #0 12/07/23 12/07/23 Rx
tabs
aspirin 325 mg tablet 325 mg PO DAILY blood clot 12/07/23 Rx
prevention #1 tab
cefadroxil 500 mg capsule 500 mg PO BID infection prevention 12/07/23 Rx
#14 caps
celecoxib 200 mg capsule 200 mg PO DAILY anti-inflammatory 12/07/23 Rx
#14 caps
docusate sodium 100 mg capsule 100 mg PO BID stool softner #1 cap 12/07/23 Rx
(Colace)
ondansetron 4 mg disintegrating 4 mg PO Q6H PRN n/v #20 tabs 12/07/23 Rx
tablet
oxycodone 5 mg tablet 5 mg PO Q6H PRN 1 tab moderate 12/07/23 Rx
pain, 2 tabs severe pain #30 tabs
sennosides 8.6 mg tablet (Senokot) 17.2 mg (2 x 8.6 mg) PO BID 12/07/23 Rx
laxative #2 tabs
Review of Systems
-
History Source: Patient
All other systems: Negative unless noted
Constitutional: Fatigue
EENT: No Symptoms
Respiratory: No Symptoms
Cardiac: No Symptoms
Abdomen/GI: No Symptoms
: No Symptoms
Musculoskeletal: No Symptoms
Skin: No Symptoms
Neurological: No Symptoms
Endocrine: No Symptoms
Hematologic/Lymphatic: No Symptoms
Physical Exam
Vital Signs
Temp Pulse Resp BP Pulse Ox
99.4 F 106 20 146/71 97
03/26/24 05:24 03/26/24 05:24 03/26/24 05:24 03/26/24 05:24 03/26/24 05:24
Lab Results
03/26/24 01:20
03/26/24 01:20
Troponin I 0.057 ng/ml H* 03/26/24 06:31
Physical Exam
General: Well Developed, Well Nourished, No Apparent Distress and Comfortable
HEENT: Normocephalic, Anicteric and Moist Mucous Membranes
Respiratory: Clear and Non Labored Respirations
Cardiac: S1/S2 and Regular Rhythm; Negative Peripheral Edema
Breast: Deferred by me
GI: Soft, Non Tender, Non Distended and Normal Bowel Sounds
Rectal: Deferred by Provider
Genito-urinary: No Costovertebral Tender
Musculoskeletal: No Clubbing, No Cyanosis and No Edema
Skin: Warm and Dry
Neuro: AO x 3
Hematologic/Lymphatic: No Lymphadenopathy
Psych: Calm
Impression / Plan
-
IMPRESSION/PLAN: 78M with HTN, HLD, and NIDDM presented with a fall. He was found to have an abnormal troponin which led to an abnormal echocardiogram.
NSTEMI
-Inferior infarct on EKG present since 2012
-Basal to mid inferior and inferior lateral hypokinesis/akinesis on echocardiogram
-ASA 324mg x 1 now and start heparin gtt
-Cardiac catheterization today
Hypertension, continue lisinopril
NIDDM, last outpatient HgbA1c 7.0%, update
Dyslipidemia, LDL 65 on simvastatin
SUBJECTIVE:
As above
DATA:
Echocardiogram, 03/26/2024:
CONCLUSIONS
LV ejection fraction is 60-65%. Basal to mid inferior and inferolateral
hypokinesis/akinesis.
Normal right ventricular size and function.
Aortic sclerosis without stenosis.
No prior study available for comparison.
Data Reviewed
-
EKG: Report Reviewed by me
Labs: Labs Reviewed by me
Old Records: Reviewed
--- NOTE | 2024-03-26 12:00 | CM ---
Reviewed the chart notes and spoke to the patient's spouse at the bedside. Patient was off floor for testing. The patient has had multiple falls. The patient is admitted for syncope. Patient's status has been changed to inpatient. The patient
resides with his spouse in a one story home with one step to enter. The patient has in the home a cane, rolling walker, and raised toilet seat. The patient has not had VN or been to a SNF in the past. The patient's pharmacy of choice is the [facility] and his PCP is Dr. Julia Bautista. Per attending, patient going for hearth cath today. CM continues to be available to patient/family and is monitoring medical plan for needs at discharge.
Plan: Discharge plans will depend on the patient's progress.
[2024-03-26 12:09] LABS: Glucose - Point of Care 126 mg/dl (70-99)
[2024-03-26 13:03] LABS: Hematocrit 41.2 % (39.0-52.0); Hemoglobin 14.4 g/dL (13.0-18.0); Mean Corpuscular Hgb 33.1 pg (27.0-31.0); Mean Corpuscular Volume 94.7 fL (80.0-94.0); Mean Platelet Volume 10.7 fL (7.4-10.4); Platelet Count 176 10^3/uL (130-400); Red Blood Cell Count 4.35 10^6/uL (4.70-6.10); Red Cell Dist. Width 12.8 % (11.5-14.5); White Blood Cell Count 9.5 10^3/uL (4.8-10.8)
[2024-03-26 13:06] LABS: Glycohemoglobin (HgbA1c) 6.6 % (4.0-5.6)
[2024-03-26 13:15] LABS: APTT 32.3 Sec (23.4-35.0)
[2024-03-26] MEDS: LOW STRENGTH ASPIRIN 324 MG PO (13:26)
[2024-03-26] MEDS: HEPARIN 25000 UNITS/250 ML 10 IV (13:37)
[2024-03-26] MEDS: HEPARIN 4000 UNITS IV (13:44)
--- NOTE | 2024-03-26 15:05 | W.PN.HOSP.TC ---
Today's Communication/Plan
-
Left heart cath.
Assessment / Plan
Assessment / Plan
Impression:
Presentation with multiple falls and syncope at home
Patient's reported hypotension
Non-Q wave NC suspect subacute.
Essential hypertension
Amb-nfxowuq-opvutarli diabetes
Dyslipidemia.
Tobacco use disorder
Plan:
Syncope with multiple falls at home.
Neurologically with no focal findings
CT scan of the head with no acute abnormalities
No seizure reported.
Carotid ultrasound with right ICA stenosis at greater than 70%. Asymptomatic at this point. Will need vascular surgery follow-up
Non-Q wave NC.
Echocardiogram with preserved LVEF 60%, although with mild inferior and inferior lateral hypokinesis/akinesis.
Cardiology consultation
Aspirin
Initiated on IV heparin
Statin
Ischemic evaluation with left heart cath today
Essential hypertension continue lisinopril.
Patient is report relative hypotension that likely contributing to syncopal episode.
Reassess hemodynamics and volume status postcatheterization
Type 2 diabetes
Hemoglobin A1c 6.6.
Hold glyburide, metformin acutely.
Basal bolus protocol with serial Accu-Cheks
Anticipated Discharge: 24 - 48 hours
Subjective/Interval History
-
Date of Service: March 26, 2024
Objective Data
-
Labs:
Laboratory Results
03/26/24 03/26/24
12:53 19:50
WBC 9.5
Hgb 14.4
Hct 41.2
Plt Count 176
APTT 32.3 Pending
Vital Signs:
Vital Signs
Temp Pulse Resp BP Pulse Ox
97.6 F 94 18 132/87 94
03/26/24 11:00 03/26/24 11:00 03/26/24 11:00 03/26/24 11:00 03/26/24 11:00
I&O
03/25/24 03/26/24 03/27/24
06:59 06:59 06:59
Intake Total 120 / 120
Output Total 200 / 200
Balance -80 / -80
Physical Exam
-
General: Well Developed and No Apparent Distress
HEENT: Normocephalic, Atraumatic and Moist Mucous Membranes
Respiratory: Clear to Auscultation
Cardiac: Regular Rhythm and S1/S2; Negative Murmur, Rub or Gallop
GI: Soft, Nontender, Nondistended and Normal Bowel Sounds; Negative Organomegaly
Rectal: Deferred by Provider
Musculoskeletal: No Clubbing, No Cyanosis and No Edema
Skin: Negative Rash
Neuro: Nonfocal/Grossly Intact
--- NOTE | 2024-03-26 15:45 | PTCARENOTE ---
Pt received from the Cardiac cath lab nurse via bed. Pt is AAOx3, VSS, Pt is afebrile. Pt wiith Vascular band to right wrist. Bruise noted at insertion site. No bleeding noted at this time. Fingers are warm with good capillary refill. Call laura is within
reach. Will continue to monitor.
--- NOTE | 2024-03-26 16:02 | ITS.CL.CATH ---
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
Cardiac Catheterization
Procedure Report:
CARDIAC CATHETERIZATION REPORT
Date of Procedure: 03/26/2024
Referring: Andrea Watt M.D.
INDICATION: Syncope, abnormal troponin, new cardiomyopathy.
PROCEDURE:
1. Left heart catheterization.
2. Coronary angiography.
ACCESS:
6 British right radial artery.
CATHETERS:
1. 5 British JR4.
2. 5 British JL 3.5.
HEMODYNAMIC DATA
Weight (kg): 98.5
AO (s/d/x, mmHg): 125/80/99
LV (s/x mmHg): 127/15
LEFT VENTRICULOGRAPHY: Not performed.
CORONARY ANGIOGRAPHY
Dominance: Right.
Left Main: Large size, trifurcating vessel. There is no coronary artery disease.
LAD: Large size vessel wrapping around the apex with several small diagonals. There are luminal irregularities in the proximal and mid vessel.
Ramus: Large size vessel supplying much of the lateral and anterolateral wall. There are minor luminal irregularities.
Circumflex: Normal size, nondominant vessel that is essentially a single large marginal supplying the inferolateral wall. There is moderate tortuosity. There is a 40% lesion in the mid vessel.
RCA: Normal size, dominant vessel. The vessel is chronically totally occluded in its proximal margin. The RPDA is supplied by collaterals from the distal LAD.
INTERVENTION(S)
None.
Closure Device: Vascular band.
Radiation (mGy): 424.83
DAP (cm2.Gy): 24.8415
Fluoroscopy time (minutes): 1.9
Sedation time (minutes): 27
CONCLUSIONS
1. 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
2. Normal filling pressures (LVEDP = 15 mmHg at 98.5 kg).
RECOMMENDATIONS:
1. Expectant management after cardiac catheterization via right radial approach.
2. Limited weight bearing on the right wrist for one week.
3. Aggressive secondary prevention with high-dose, high potency statin and aspirin 81 mg daily.
4. Guideline directed medical therapy as hemodynamics will tolerate.
5. Consider potential arrhythmia genic sources of syncope, including scar mediated VT given CARD SELLER of proximal RCA and inferior hypokinesis on echocardiography.
Copy to: Andrea Watt M.D., Julia Munoz M.D.
Wili Lyon DO, FACC, FACP
[2024-03-26 16:42] LABS: Glucose - Point of Care 95 mg/dl (70-99)
[2024-03-26 21:24] LABS: Glucose - Point of Care 113 mg/dl (70-99)
[2024-03-26] MEDS: TYLENOL 650 MG PO (22:45)
[2024-03-26] MEDS: DESENEX/MITRAZOL/ZEASORB 1 APPLIC TOPICAL (23:14)
[2024-03-27 00:11] VITALS: BP 166/90
[2024-03-27 03:28] VITALS: BP 121/75; BP 132/68; BP 137/75; PULSE 105; PULSE 87; PULSE 89
[2024-03-27 06:42] LABS: Hematocrit 38.1 % (39.0-52.0); Hemoglobin 13.1 g/dL (13.0-18.0); Mean Corp Hgb Conc. 34.4 g/dL (33.0-37.0); Mean Corpuscular Hgb 32.2 pg (27.0-31.0); Mean Corpuscular Volume 93.6 fL (80.0-94.0); Platelet Count 180 10^3/uL (130-400); Red Blood Cell Count 4.07 10^6/uL (4.70-6.10); Red Cell Dist. Width 12.7 % (11.5-14.5); White Blood Cell Count 8.5 10^3/uL (4.8-10.8)
[2024-03-27 07:00] VITALS: BP 131/75; BP 139/75; BP 141/82; PULSE 102; PULSE 95; PULSE 96
[2024-03-27 07:08] LABS: Blood Urea Nitrogen 15 mg/dl (9-20); Calcium 9.4 mg/dl (8.4-10.2); Carbon Dioxide 25 mmol/L (22-30); Chloride 101 mmol/L (98-107); Estimated Creatinine Clearance 117 ml/min; Glucose 129 mg/dl (70-99); Potassium 3.7 mmol/L (3.5-5.1); Sodium 138 mmol/L (135-145); eGFR > 60.00
--- NOTE | 2024-03-27 07:53 | W.PN.CD ---
Addendum entered and electronically signed by Andrea Watt MD 03/27/24 09:34:
Patient seen and examined in collaboration with [facility]; agree with below.
-Cardiac catheterization yesterday revealed OCEAN FREIGHT MANAGER of the proximal RCA.
-Continue with medical management; will place on atorvastatin 40 mg daily.
-Will start Toprol-XL 25 mg daily, given NSVT on telemetry.
-Preserved LVEF on echocardiogram with no significant valvulopathy.
-No further cardiac recommendations at this time; patient can follow-up with Cardiology as an outpatient.
Original Note:
Today's Communication / Plan
-
Start metoprolol succinate
Impression / Plan
-
IMPRESSION/PLAN: 78M with HTN, HLD, and NIDDM presented with a fall. He was found to have an abnormal troponin which led to an abnormal echocardiogram.
NSTEMI
-Peak troponin 0.057
-Inferior infarct on EKG present since 2012
-Basal to mid inferior and inferior lateral hypokinesis/akinesis on echocardiogram
-OCEAN FREIGHT MANAGER of RCA on cardiac catheterization 03/26/2020
-Continue ASA & statin
-LDL at goal
NSVT
-Start metoprolol succinate 25mg daily
Falls with syncope
-He does have a degree of ambulatory dysfunction
-Will arrange for 2-week surveillance monitor given his OCEAN FREIGHT MANAGER of proximal RCA with inferior hypokinesis as he could have scar mediated VT
Hypertension, continue lisinopril
NIDDM, last outpatient HgbA1c 6.6%, update
Dyslipidemia, LDL 65 on simvastatin
SUBJECTIVE:
As above
DATA:
Echocardiogram, 03/26/2024:
CONCLUSIONS
LV ejection fraction is 60-65%. Basal to mid inferior and inferolateral
hypokinesis/akinesis.
Normal right ventricular size and function.
Aortic sclerosis without stenosis.
No prior study available for comparison.
Cardiac catheterization, 03/26/2024:
CONCLUSIONS
1. 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
2. Normal filling pressures (LVEDP = 15 mmHg at 98.5 kg).
Physical Exam
Vital Signs/Labs
Vital Signs
Temp Pulse Resp BP Pulse Ox
98.7 F 95 20 141/82 93
03/27/24 07:00 03/27/24 07:00 03/27/24 07:00 03/27/24 07:00 03/27/24 07:00
03/26/24 03/27/24 03/28/24
06:59 06:59 06:59
Actual Weight 98.475 kg
03/27/24 06:18
03/27/24 06:18
APTT Cancelled 03/26/24 19:50
Triglycerides 88 mg/dl (10-149) 03/26/24 06:31
LDL Cholesterol, Calc 65 mg/dl 03/26/24 06:31
VLDL Cholesterol, Calc 17 mg/dl (0-30) 03/26/24 06:31
HDL Cholesterol 43 mg/dl 03/26/24 06:31
LAB Results
03/26/24 03/26/24 03/26/24
01:20 04:33 06:31
Troponin I 0.040 H* 0.054 H* D 0.057 H*
Physical Exam
Constitutional: No acute distress
EENT: Anicteric and Moist mucous membranes
Cardiovascular: Rhythm & rate is regular, Pedal edema is absent and S1S2 is normal
Respiratory: Respiratory effort normal and Lungs clear to auscul.
GI: Soft, Distention absent, Flat, Non tender and Normal bowel sounds
Neuro/Psych: AO x 3
Other: Skin (warm and dry) and Cath Site (radial site without hematoma)
Data Reviewed
-
Date of Service: March 27, 2024
[2024-03-27 08:35] LABS: Glucose - Point of Care 132 mg/dl (70-99)
[2024-03-27] MEDS: NOVOLOG FLEXPEN-LOW RESISTANCE SC (08:41)
[2024-03-27] MEDS: ZESTRIL 20 MG PO (08:58)
[2024-03-27] MEDS: TOPROL XL 25 MG PO (09:00)
[2024-03-27] MEDS: DESENEX/MITRAZOL/ZEASORB 1 APPLIC TOPICAL (09:00)
[2024-03-27] MEDS: LOW STRENGTH ASPIRIN 81 MG PO (09:00)
[2024-03-27] MEDS: LIPITOR 40 MG PO (09:05)
[2024-03-27] MEDS: LIPITOR PO (09:08)
[2024-03-27 11:14] VITALS: BP 122/70
[2024-03-27 12:12] LABS: Glucose - Point of Care 246 mg/dl (70-99)
[2024-03-27] MEDS: NOVOLOG FLEXPEN-LOW RESISTANCE 2 UNITS SC (12:31)
--- NOTE | 2024-03-27 12:36 | W.DS.TRANS ---
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
-
Discharge Instructions:
Discharge Diagnosis/Procedures Cardiac catheterization
Syncope
Asymptomatic right ICA stenosis
Diet Low Cholesterol
Others Tests A heart monitor is being arranged for you. This
will be mailed to your home from the cardiology
office.
Instructions:
Stand-Alone Forms: DC Instructions- Cath/EP Lab
Changes to Home Medications: Yes
Discharge Medications:
DC Medications w/original date entered in [employer]
lisinopril 20 mg tablet 20 mg PO DAILY ##0 04/04/13
simvastatin 40 mg tablet 40 mg PO DAILY ##0 04/04/13
Vitamin B Complex 100 No.2 1 tab PO DAILY 04/24/17
glyburide 1.25 mg tablet 5 mg PO DAILY 04/24/17
metformin 500 mg tablet 1,000 mg PO BID 04/24/17
budesonide 160 mcg-glycopyr 9 mcg-formot 4.8 mcg/actuation HFA inhaler (Breztri Aerosphere) 2 inh inhalation BID 12/01/23
mupirocin 2 % ointment topical kit 1 applic topical BID 12/01/23
vit C 250 mg-vit E 90 mg-zinc 40 mg-copper 1 [id number] capsule (PreserVision AREDS-2) 1 tab PO BID 12/01/23
Saccharomyces boulardii 250 mg capsule (Florastor) 250 mg PO BID #1 cap 12/07/23
acetaminophen 325 mg capsule (Tylenol) 650 mg (2 x 325 mg) PO QID #2 caps 12/07/23
acetaminophen 500 mg tablet 1,000 mg (2 x 500 mg) PO QID #0 tabs 12/07/23
aspirin 325 mg tablet 325 mg PO DAILY blood clot prevention #1 tab 12/07/23
cefadroxil 500 mg capsule 500 mg PO BID infection prevention #14 caps 12/07/23
celecoxib 200 mg capsule 200 mg PO DAILY anti-inflammatory #14 caps 12/07/23
docusate sodium 100 mg capsule (Colace) 100 mg PO BID stool softner #1 cap 12/07/23
ondansetron 4 mg disintegrating tablet 4 mg PO Q6H PRN n/v #20 tabs 12/07/23
oxycodone 5 mg tablet 5 mg PO Q6H PRN 1 tab moderate pain, 2 tabs severe pain #30 tabs 12/07/23
sennosides 8.6 mg tablet (Senokot) 17.2 mg (2 x 8.6 mg) PO BID laxative #2 tabs 12/07/23
aspirin 81 mg chewable tablet 81 mg PO DAILY #30 tabs 03/27/24
metoprolol succinate 25 mg tablet,extended release 24 hr 25 mg PO DAILY #30 tabs 03/27/24
Home Medication Changes
Beta eladia initiated
Pending Results: No
--- NOTE | 2024-03-27 13:32 | CM ---
Reviewed the chart notes and spoke with the patient and his spouse at the bedside. IMM reviewed. The patient is being discharged to home with no needs identified. VN offered and patient declined need. CM continues to be available to
patient/family and is monitoring medical plan for needs at discharge.
Plan: Discharge to home today. Patient's spouse will provide transportation.
[2024-03-27] MEDS: FLUAD (65 yr+) 2024-2025 FORMULA 0.5 ML IM (13:39)
--- NOTE | 2024-03-27 13:57 | W.DS.TRANS ---
DC Summary - Cover Remover
-
Discharge Instructions:
Discharge Diagnosis/Procedures Cardiac catheterization
Syncope
Asymptomatic right ICA stenosis
Diet Low Cholesterol
Others Tests A heart monitor is being arranged for you. This
will be mailed to your home from the cardiology
office.
Instructions:
Stand-Alone Forms: DC Instructions- Cath/EP Lab
Changes to Home Medications: Yes
Discharge Medications:
DC Medications w/original date entered in [employer]
lisinopril 20 mg tablet 20 mg PO DAILY ##0 04/04/13
simvastatin 40 mg tablet 40 mg PO DAILY ##0 04/04/13
Vitamin B Complex 100 No.2 1 tab PO DAILY 04/24/17
glyburide 1.25 mg tablet 5 mg PO DAILY 04/24/17
metformin 500 mg tablet 1,000 mg PO BID 04/24/17
budesonide 160 mcg-glycopyr 9 mcg-formot 4.8 mcg/actuation HFA inhaler (Breztri Aerosphere) 2 inh inhalation BID 12/01/23
vit C 250 mg-vit E 90 mg-zinc 40 mg-copper 1 [id number] capsule (PreserVision AREDS-2) 1 tab PO BID 12/01/23
Saccharomyces boulardii 250 mg capsule (Florastor) 250 mg PO BID #1 cap 12/07/23
oxycodone 5 mg tablet 5 mg PO Q6H PRN 1 tab moderate pain, 2 tabs severe pain #30 tabs 12/07/23
aspirin 81 mg chewable tablet 81 mg PO DAILY #30 tabs 03/27/24
metoprolol succinate 25 mg tablet,extended release 24 hr 25 mg PO DAILY #30 tabs 03/27/24
Home Medication Changes
Beta eladia initiated
Pending Results: No
== END 2024-03-27 15:32 | disposition home or self-care (01) | DRG 281 ==
LOC: 2 SOUTH 11:57
PROVIDERS: Clinical Nurse Specialist Family Health; Internal Medicine Cardiovascular Disease; Nurse Practitioner; Nurse Practitioner Gerontology; ADMITTING PHYSICIAN Internal Medicine; ATTENDING PHYSICIAN Internal Medicine; CONSULT PHYSICIAN Internal Medicine; EMERGENCY PHYSICIAN Emergency Medicine; FAMILY PHYSICIAN Student in an Organized Health Care Education/Training Program
PROC: B2111ZZ Fluoroscopy of Multiple Coronary Arteries using Low Osmolar Contrast (ICD-10-PCS; 2024-03-26)
PROC: 4A023N7 Measurement of Cardiac Sampling and Pressure, Left Heart, Percutaneous Approach (ICD-10-PCS; 2024-03-26)
PROC: 3E02340 Introduction of Influenza Vaccine into Muscle, Percutaneous Approach (ICD-10-PCS; 2024-03-27)
DX: I21.4 Non-ST elevation (NSTEMI) myocardial infarction (principal); I47.29 Other ventricular tachycardia; R29.6 Repeated falls; R51.9 Headache, unspecified; R19.7 Diarrhea, unspecified; E11.65 Type 2 diabetes mellitus with hyperglycemia; E78.00 Pure hypercholesterolemia, unspecified; H35.30 Unspecified macular degeneration; I10 Essential (primary) hypertension; R05.3 Chronic cough; E66.9 Obesity, unspecified; F17.200 Nicotine dependence, unspecified, uncomplicated; I70.0 Atherosclerosis of aorta; I25.10 Atherosclerotic heart disease of native coronary artery without angina pectoris; I25.82 Chronic total occlusion of coronary artery; R55 Syncope and collapse; D72.829 Elevated white blood cell count, unspecified; W18.39XA Other fall on same level, initial encounter; Y93.89 Activity, other specified; Y92.002 Bathroom of unspecified non-institutional (private) residence as the place of occurrence of the external cause; Z96.641 Presence of right artificial hip joint; Z91.81 History of falling; Z68.31 Body mass index [BMI] 31.0-31.9, adult; Z23 Encounter for immunization; Z79.84 Long term (current) use of oral hypoglycemic drugs; Z79.1 Long term (current) use of non-steroidal anti-inflammatories (NSAID); Z79.891 Long term (current) use of opiate analgesic
CPT/HCPCS: 70450; 71046; 73502; 80048; 80053; 80061; 81003; 81015; 82962; 83036; 84484; 85025; 85027; 85730; 87086; 90662; 93005; 93306; 93458; 93880; 96360; 97162; 99285; C1894; G0008; Q9967

== ENCOUNTER → 2024-04-22 10:21 | Outpatient (REF) | payer OTHER, SELFPAY | LOC: PAVMRI 10:21 | PROVIDERS: ATTENDING PHYSICIAN Orthopaedic Surgery; FAMILY PHYSICIAN Student in an Organized Health Care Education/Training Program | DX: M54.50 Low back pain, unspecified (principal) | CPT/HCPCS: 72148 ==

== ENCOUNTER 2024-05-17 06:37 | Day surgery (SDC) | payer OTHER, SELFPAY ==
[2024-05-15 13:28] LABS: % Basophils 0.4 % (0-2); % Eosinophils 3.7 % (0-6); % Immature Granulocytes 0.3 % (0-0.5); % Lymphocytes 23.4 % (20.5-51.1); % Monocytes 7.4 % (1.7-9.3); % Neutrophils 64.8 % (42.2-75.2); Absolute Eosinophils 0.3 10^3/uL (0-0.7); Absolute Lymphocytes 1.9 10^3/uL (1.2-3.4); Absolute Monocytes 0.6 10^3/uL (0.1-0.6); Absolute Neutrophils 5.1 10^3/uL (1.4-6.5); Hematocrit 35.6 % (39.0-52.0); Hemoglobin 11.8 g/dL (13.0-18.0); Mean Corp Hgb Conc. 33.1 g/dL (33.0-37.0); Mean Corpuscular Hgb 31.1 pg (27.0-31.0); Mean Corpuscular Volume 93.7 fL (80.0-94.0); Mean Platelet Volume 10.4 fL (7.4-10.4); Nucleated Red Blood Cells % 0 % (-); Platelet Count 235 10^3/uL (130-400); Red Cell Dist. Width 14.2 % (11.5-14.5); White Blood Cell Count 7.9 10^3/uL (4.8-10.8)
[2024-05-15 13:50] LABS: ALT (SGPT) 21 U/L (0-50); AST (SGOT) 21 U/L (17-59); Albumin 3.7 g/dl (3.5-5.0); Alkaline Phosphatase 83 U/L (38-126); Blood Urea Nitrogen 16 mg/dl (9-20); Calcium 9.6 mg/dl (8.4-10.2); Carbon Dioxide 25 mmol/L (22-30); Chloride 102 mmol/L (98-107); Glucose 260 mg/dl (70-99); Sodium 138 mmol/L (135-145); Total Bilirubin 0.5 mg/dl (0.2-1.3); eGFR > 60.00
[2024-05-15 13:59] VITALS: BMI 32.9
[2024-05-17] VITALS (12 sets, daily range): BP systolic 115–157; BP diastolic 57–99; BMI 33.0
[2024-05-17 07:27] LABS: Glucose - Point of Care 194 mg/dl (70-99)
--- NOTE | 2024-05-17 07:34 | W.ICD.CONTRA ---
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
-
History of [place]?: No
LV Function
Left ventricular function study result?: Ejection Fraction >/= 40%
ACEI/ARB/ARNI
Patient already on ACEI/ARB/ARNI: Yes
Beta-Janes
Patient already on Beta Janes: Yes
--- NOTE | 2024-05-17 09:10 | ITS.CL.ICD ---
Special Client Bus Driver - ICD
Implantable Cardioverter Defibrillator
Procedure Report:
Dual Chamber Implantable Cardioverter Defibrillator Placement:
Mr. 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
mediated VT s/p rhythm monitoring showed long runs of VT and bradycardia with limiting use of beta blockers and is recommended a dual chamber ICD placement.
Indications: Secondary prevention of ventricular arrhythmia.
Date of the Procedure: �03/16/2025
Pre-Operative Diagnosis: Ischemic cardiomyopathy with Ventricular Tachycardia with infarcted scar substrate and bradycardia
Post-Operative Diagnosis: Ischemic cardiomyopathy with Ventricular Tachycardia with infarcted scar substrate and bradycardia
Procedure Performed: DUAL CHAMBER IMPLANTABLE CARDIOVERTER DEFIBRILLATOR IMPLANTATION
Performing Physician:
Nito Chung MD
Assistants:
EP staff
Anesthesia:
See anesthesia records
Detailed Description of the Procedure:
The patient was identified using hospital identification and informed consent obtained for the procedure. The risks were explained including, but not limited to: Bleeding, infection, arrhythmia, stroke, vascular/cardiac/lung puncture, surgery,
pacemaker dependency/device malfunction. All questions were answered.
The patient was brought to the electrophysiology laboratory in stable condition in fasting state. Continuous electrocardiographic and hemodynamic monitoring was initiated. The initial rhythm was atrial fibrillation that converted to sinus with 2:1
AV block.
The procedure site was meticulously prepared with surgical scrub and allowed to dry with no pooling. Sterile draping was applied to cover the procedure site. The image intensifier was draped with sterile bag and positioned over the patient.
The left infraclavicular region was prepped and draped in the usual sterile fashion. Local anesthesia was administered subcutaneously using 1% lidocaine / epinephrine. The left cephalic vein was searched but no adequate vein was identified.
The axillary vein was accessed using the fluoroscopic guidance using the micro-puncture apparatus and vascular sheath was introduced over the guidewire for lead access. The guide wire was advanced into the inferior vena cava. The wire was retained
and two guide wires were placed in subclavian vein. Using the sheaths, atrial and ventricular leads were placed. These were advanced into the right ventricle and the right atrium.
The right ventricular lead was secured in position with an active fixation technique at the apical septal location.
The RA lead was attached in the right atrial appendage with active fixation. �
There was excellent sensing, pacing, and impedance from the leads, with no diaphragmatic stimulation at 10 V output.�Bovie cautery, antibiotics, and fluoroscopy were used.
The sheath was withdrawn, and the thresholds remained acceptable. A pursestring suture using 2-0 Vicryl was made around the insertion of the leads. The leads were secured in position at the venous entry site with 2-0 Ethibond. A pocket was fashioned
contiguous to the incision. The electrode terminals were connected to the pulse generator, which was placed into the pocket. The wound was irrigated thoroughly with antibiotic solution and closed in 3 layers using 2-0 VLoc sutures followed by 2
layers of 4-0 V-loc sutures. Steri-Strips and a bandage were applied externally.�
Procedure End:
The procedure was tolerated well. A bandage was applied to the incision area.
Estimated Blood loss:
5 cc
Fluoro time:
0.9min / 1.98mGy
Specimens Removed:
No cultures and no specimens were obtained. No intraoperative pathology was identified.
Urine output:
None
Packs / Drains/ Tubes:
None
Instrument / Sponge Count Correct:
Yes
Complications of the Procedure:
None
Condition of Patient at Time of Transfer:
Hemodynamically stable with no neurological or vascular compromise.
Device information:�
Generator: [employer]; Model: [id number]; Serial # [id number]
Atrial Lead: Medtronic; Model: 5076-52; Serial # [id number]
Measured data in the right atrium was sensing of 2.4 mV, impedance of 475 ohms and threshold of 0.75 V at 0.4ms�
RV Lead: Medtronic; Model: 6935M-62; Serial # [id number]
Measured data in the RV lead was sensing of 5.2mV, impedance of 722ohms and threshold of 0.5 V at 0.4ms�
PROGRAMMING PARAMETERS:�
Talha parameter settings were AAI <=>DDD 60-130 bpm. �
����������� Mode switch: On
����������� Paced AV delay: 180 ms
����������� Sensed AV delay: 150 ms
����������� Rate Adaptive A-V Interval: Off
Output parameters:
����������������������� Amplitude (V)������������� Pulse Width (ms)������� Sensitivity (mV)
����������� RA: ����� 3.5 ����������������� 0.4������������������ 0.3
����������� RV:������ 3.5������������������ 0.4������������������ 0.3
Tachy parameter settings:
����������� SVT discrimination: On
����������� AF/AFl: On
����������� SVT limit: 260 msec
����������� VT zone:
����������������������� Slow VT: 162 - 188 bpm --> Monitor
����������������������� Fast VT / VF: >188 bpm--> shock x6 (ATP before and during)
Summary:
Successful implantation of MRI compatible dual chamber Medtronic implantable Cardioverter Defibrillator.�
Results/Recommendations:
-Please follow up CXR�
1. Please provide patient with adequate pain control�
Instructions to be given to patient:�
- Please follow up with [facility] at [address] [place] [address] ([phone]) to get your wound checked within 14 days of your discharge.
- Do not soak incision site until after it is evaluated at cardiology clinic. OK to showers followed by dab dry the area. No baths or swimming until then. Sponge baths are OK.�
- Allow 'steri strips' to fall off on their own�
- Do not lift left elbow above shoulder, particularly with sudden jerking movements, for 1 month�
- Do not lift anything weighing more than 5 pounds with the left arm for 1 month�
- If you notice any fevers, shortness of breath, lightheadedness, chest pain, or worsening swelling in the wound site, please contact the arrhythmia clinic, contact your development intern, or present to the hospital for evaluation.�
Nito Chung MD
Electrophysiology
[2024-05-17] MEDS: ANCEF 5 IV (13:39)
--- NOTE | 2024-05-17 13:49 | W.PN.UPDATE ---
Update Note
Progress Note Update
79 yo WM s/p DC ICD Medtronic (same day). He has very mild inc pain, denies cp, sob, EKG SR, L CW dressing c/d/i no HT, CXR leads in position, no PTX (official read pending). Activity restrictions reviewed. He has incision check in 1 week. He did
receive another dose of cephazolin IV prior to d/c. He is for d/c home after 2pm.
== END 2024-05-17 14:00 | disposition home or self-care (01) ==
LOC: CATH 06:37
PROVIDERS: ATTENDING PHYSICIAN Internal Medicine Cardiovascular Disease; FAMILY PHYSICIAN Student in an Organized Health Care Education/Training Program; OTHER PHYSICIAN Internal Medicine
DX: I47.20 Ventricular tachycardia, unspecified (principal); R00.1 Bradycardia, unspecified; L90.5 Scar conditions and fibrosis of skin; I25.5 Ischemic cardiomyopathy; I49.1 Atrial premature depolarization; Z79.82 Long term (current) use of aspirin; Z79.899 Other long term (current) drug therapy; Z79.84 Long term (current) use of oral hypoglycemic drugs; E11.9 Type 2 diabetes mellitus without complications; I10 Essential (primary) hypertension; R55 Syncope and collapse; I25.2 Old myocardial infarction
CPT/HCPCS: 33249; 36415; 71045; 80053; 82962; 85025; 93005; C1721; C1777; C1892; C1898

== ENCOUNTER → 2024-09-05 11:26 | Outpatient (REF) | payer OTHER, SELFPAY | LOC: HWRAD 11:26 | PROVIDERS: ATTENDING PHYSICIAN Internal Medicine; FAMILY PHYSICIAN Student in an Organized Health Care Education/Training Program | DX: I65.21 Occlusion and stenosis of right carotid artery (principal) | CPT/HCPCS: 93880 ==

== ENCOUNTER → 2024-10-11 10:41 | Outpatient (REF) | payer OTHER, SELFPAY | LOC: RAD 10:41 | PROVIDERS: ATTENDING PHYSICIAN Surgery Vascular Surgery; FAMILY PHYSICIAN Student in an Organized Health Care Education/Training Program | DX: I65.23 Occlusion and stenosis of bilateral carotid arteries (principal) | CPT/HCPCS: 70496; 70498; Q9967 ==

== ENCOUNTER 2024-11-15 08:22 | Inpatient (IN) | payer OTHER, SELFPAY ==
[2024-11-13 09:30] VITALS: BMI 33.0
[2024-11-13 09:57] LABS: Hematocrit 40.4 % (39.0-52.0); Hemoglobin 13.5 g/dL (13.0-18.0); Mean Corp Hgb Conc. 33.4 g/dL (33.0-37.0); Mean Corpuscular Volume 90.0 fL (80.0-94.0); Nucleated Red Blood Cells % 0 % (-); Platelet Count 199 10^3/uL (130-400); Red Cell Dist. Width 13.9 % (11.5-14.5)
[2024-11-13 10:07] LABS: INR 0.99; PT 13.4 Sec (11.4-14.6)
[2024-11-13 10:08] LABS: APTT 27.2 Sec (23.4-35.0)
[2024-11-13 10:30] LABS: Blood Urea Nitrogen 21 mg/dl (9-20); Calcium 9.4 mg/dl (8.4-10.2); Carbon Dioxide 25 mmol/L (22-30); Chloride 105 mmol/L (98-107); Estimated Creatinine Clearance 93 ml/min; Glucose 164 mg/dl (70-99); Potassium 4.5 mmol/L (3.5-5.1); Sodium 140 mmol/L (135-145); eGFR > 60.00
[2024-11-15] VITALS (26 sets, daily range): BP systolic 93–157; BP diastolic 58–92; BMI 30.2
[2024-11-15 09:00] LABS: Glucose - Point of Care 181 mg/dl (70-99)
[2024-11-15] MEDS: PERIDEX 0.12% ORAL RINSE 15 ML PO (09:05)
[2024-11-15] MEDS: NSS 500 IV (09:05)
[2024-11-15] MEDS: BACTROBAN NASAL 1 GRAM NASAL (09:05)
--- NOTE | 2024-11-15 09:51 | W.SUR.PREOP ---
Pre-Operative Surgical Note
-
I have examined this patient prior to the performance of the scheduled procedure.
The patient's condition is unchanged from the time of the current History and
Physical and the patient is able to undergo the scheduled procedure.
--- NOTE | 2024-11-15 12:31 | OR.RPT ---
Addendum entered and electronically signed by Nikko Jenkins MD 11/15/24 12:33:
Correction to below. Practice Billing Associate was not JAE Chavez, but rather JAE Zabala.
Original Note:
Operative Report
Operative Report
PROCEDURE DATE: 11/15/2024
Preoperative diagnosis:
1. Chronic left internal carotid artery occlusion.
2. Critical right carotid artery stenosis, asymptomatic.
Postoperative diagnosis: Same
Procedure: Right carotid endarterectomy with bovine pericardial patch angioplasty and intraoperative EEG/SSEP monitoring.
Surgeon: Gregory
Practice Billing Associate: JAE Chavez, required for all aspects of procedure including assistance with traction/countertraction, following suture line, assistance with closure.
Complications: None
Anesthesia: General
Indications for procedure:
Chronic left carotid occlusion with severe bulky plaque and critical stenosis right carotid. Risk/benefits/alternatives of carotid endarterectomy fully discussed. Patient understood and wished to proceed.
Description of procedure:
Patient was identified brought to the operating room placed on the table in supine position. After the adequate administration of anesthesia and perioperative antibiotics he was prepped and draped in the standard surgical fashion. A standard
preoperative timeout was undertaken and everybody was in agreement the plan. A standard longitudinal incision was made in the right neck that was carried through the skin subcutaneous tissue. Using the electrocautery dissection was carried through
the platysma muscle layer and then alongside the anterior medial border of the sternocleidomastoid muscle. Then using a combination of sharp dissection with the Metzenbaum scissors and electrocautery I dissected along the anterior medial border of
the internal jugular vein. The common facial vein branch was ligated between silk ties and then divided. I then deepened my retraction. The common carotid artery was identified and carefully dissected away from the surrounding structures take
great care to avoid any injury to the structures. A vessel loop was passed around it which was double looped, but not yet tightened. Note the vagus nerve was protected from harm's way. I then continued my dissection up the common carotid artery
to the bulb staying only on the anterior surface of the carotid artery. I noted that I would have to extend my incision slightly due to the extent of calcified plaque that I could palpate in the proximal internal carotid artery. Therefore I would
have to expose slightly more cephalad on the internal carotid artery than I had initially planned for. An additional vein branch was ligated between silk ties and then divided to facilitate exposure now. Then I carried the dissection up to the
internal carotid artery and then to the distal internal carotid artery. I identified where it was soft and carefully circumferentially dissected the internal carotid artery with minimal mobilization and passed a vessel loop around it. Note the
hypoglossal nerve was preserved from harm's way. The patient was given an appropriate dose of heparin 9500 units. Next I dissected the anterior surface of the external carotid artery and superior thyroid branches. These were then carefully
circumferentially dissected with minimal mobilization and vessel loops passed around these which were double looped but not yet tightened. After 3 minutes of heparin circulation time and confirmation of optimization of the blood pressure with my
anesthesiology colleagues, I clamped the distal internal carotid artery where it was soft. There was no immediate EEG or SSEP changes. After 1 minute of test clamp time there was no changes noted. Therefore at this point, the vessel loops on the
external carotid artery and superior thyroid branches were tightened and the common carotid artery was clamped where it was soft proximally. An arteriotomy was made on the common carotid artery with an 11 blade and extended using a Beauchamp scissor.
I extended the arteriotomy onto the mid to distal internal carotid artery. There was as noted on CT scan severe bulky extensive plaque at the distal carotid bulb and onto the internal carotid artery. Resulted in severe stenosis. A Grafton was then
used to endarterectomized the plaque. An endarterectomy plane was created, and the plaque was then endarterectomized. Distally I feathered the plaque out to a nice clean endpoint in the distal internal carotid artery. Next I endarterectomized the
intima back to normal intima in the common carotid artery, and the intima was cut flush there. I then grasped the plaque and everted plaque out of the origin of the external carotid artery. The plaque was then sent off for specimen. Initially
with the bulkiness of the plaque, based on the CT scan I had been concerned that the wall of the artery would be too thinned by the plaque. However what I found was that the remaining wall was actually very reasonable. It was not too thinned. The
origin of the external carotid artery was carefully visualized and any fine debris were removed with fine forceps. Proximal and distal endpoints were then carefully inspected. Any fine debris was removed with fine forceps, and the intima was noted
to be nicely adherent proximally and distally. Next any fine debris were removed throughout the endarterectomy bed with fine forceps. I then flushed heparinized saline. I was very satisfied. Then, I used a bovine pericardial patch to sew a patch
angioplasty with a running 5-0 Prolene suture. Prior to completing and tying down my suture line, I backbled sequentially each branch and reclamped each branch prior to unclamping the next branch. I then flushed with heparinized saline. Then I
completed and tied down my suture line. We then restored flow in the common carotid and external carotid arteries. Finally, we released flow in the internal carotid artery. There was excellent pulsatile flow in all 3 vessels. There was an
excellent Doppler signal in the internal carotid artery distal to the patch with a good normal low resistance Doppler signal. There was a good Doppler signal in the external carotid artery as well. Protamine was given to reverse the heparin.
Hemostasis was completely achieved. We then irrigated and confirmed full hemostasis. We then closed in layers with 2-0 Vicryl layer to reapproximate the sternocleidomastoid muscle, followed by 3-0 Vicryl platysma muscle running layer, followed by
4-0 Monocryl subcuticular stitch. Dermabond was applied. The patient tolerated procedure well. He awoke moving all extremities to command with tongue in the midline. All sponge, needle, instrument counts were correct at the end of the case. The
patient was transported to the recovery room in stable condition.
[2024-11-15 13:21] LABS: Glucose - Point of Care 164 mg/dl (70-99)
[2024-11-15 13:26] LABS: Hematocrit 38.2 % (39.0-52.0); Hemoglobin 12.4 g/dL (13.0-18.0); Mean Corp Hgb Conc. 32.5 g/dL (33.0-37.0); Mean Corpuscular Volume 92.3 fL (80.0-94.0); Platelet Count 173 10^3/uL (130-400); Red Cell Dist. Width 13.9 % (11.5-14.5)
[2024-11-15 13:37] LABS: Blood Urea Nitrogen 15 mg/dl (9-20); Calcium 8.6 mg/dl (8.4-10.2); Carbon Dioxide 24 mmol/L (22-30); Chloride 108 mmol/L (98-107); Estimated Creatinine Clearance 108 ml/min; Glucose 168 mg/dl (70-99); Potassium 4.2 mmol/L (3.5-5.1); Sodium 141 mmol/L (135-145); eGFR > 60.00
[2024-11-15 13:39] LABS: INR 1.09; PT 14.6 Sec (11.4-14.6)
[2024-11-15 13:40] LABS: APTT 28.6 Sec (23.4-35.0)
[2024-11-15] MEDS: NEO-SYNEPHRINE 250 IV (13:40)
[2024-11-15] MEDS: NSS 1000 IV (14:30)
--- NOTE | 2024-11-15 14:30 | PTCARENOTE ---
Addendum entered by Uma Arguello RN 11/15/24 16:53:
Per PRODUCTION TOOL ENGINEER....pt's keyonna appeared dislodged upon arrival to PACU and was removed.
Original Note:
Rec'd pt from PACU. Pt arrived A&Ox3. Pleasant. Admission completed. Symmetrical smile...pupils 3/brisk. Speech clear. Cooperative w/ care. S1 S2 reg w/ NSR/pacing noted on monitor. +PP. 2L N/C...sats 98%. Lungs clear except right base w/
fine crackles. Encouraged to cough and deep breath. Abdomen round...+BS. No void since OR...will monitor. Skin pale and dry except right neck carotid incision...CLOTH EXAMINER MACHINE and well approximated w/ glue. Ice pack applied per orders. 18P RFA capped.
20P LH w/ IVF's and johnson gtt infusing...see intervention. VS documented. Call laura within reach. at bedside and fully updated. Will continue to monitor.
--- NOTE | 2024-11-15 16:15 | PTCARENOTE ---
No major changes in physical assessment since arrival to ICU. Call laura within reach. Bed alarm on re: fall in last 3 months. Will continue to monitor.
--- NOTE | 2024-11-15 16:28 | CON.INTV ---
Consultation
Consultation Request
Date/Time Consultation Requested: 11/15/2024
Date/Time Consultation Performed: 11/15/2024
Medical History
-
Chief Complaint: Carotid stenosis
History of Present Illness:
Patient is a very pleasant 79-year-old gentleman who was admitted to the hospital in late 2023 with syncope. Workup included CT angiogram of head and neck which was suggestive of carotid stenosis. Patient has since followed up, with vascular
surgery and was today admitted for elective right carotid endarterectomy. Postprocedure, he was admitted to ICU and plug cutting machine operator consultation was requested for further input.
Past Medical History
Past Medical History: Reports HTN and NIDDM
Past Surgical History: Reports Appendectomy
Social History
Tobacco: Former Smoker. Quite > 10 years ago
Alcohol: Occasional
Drug: None
Personal:
Living: With Family
Employment: Retired
Family History
Family History: Not pertinent
Allergies / Home Medications
Allergies / Home Medications
Allergies
Allergy/AdvReac Type Severity Reaction Status Date / Time
No Known Allergies Allergy Verified 11/15/24 08:59
Home Medications
�Medication �Instructions �Recorded �Confirmed �Last Taken �Type
vit C 250 mg-vit E 90 mg-zinc 40 1 tab PO BID 12/01/23 11/15/24 11/09/24 08:00 History
mg-copper 1 [id number]
capsule (PreserVision AREDS-2)
aspirin 81 mg chewable tablet 81 mg PO DAILY #30 tabs 03/27/24 11/15/24 11/15/24 06:00 Rx
diphenhydramine 25 1 tab PO HS 05/17/24 11/15/24 11/14/24 22:00 History
mg-acetaminophen 500 mg tablet
(Acetaminophen PM)
glyburide 5 mg tablet 5 mg PO DAILY 05/17/24 11/15/24 11/14/24 08:00 History
metoprolol succinate 50 mg 50 mg PO BID #90 tabs 05/17/24 11/15/24 11/15/24 06:00 Rx
tablet,extended release 24 hr
naproxen sodium 220 mg tablet 220 mg PO Q12H PRN mild pain 05/17/24 11/15/24 05/15/24 History
(Aleve)
vitamin B complex 1 tab PO DAILY 05/17/24 11/15/24 11/09/24 08:00 History
acetaminophen 650 mg 650 mg PO Q8H PRN pain 11/09/24 11/15/24 Unknown History
tablet,extended release (Tylenol
Arthritis Pain)
empagliflozin 10 mg tablet 10 mg PO DAILY 11/09/24 11/15/24 11/11/24 08:00 History
(Jardiance)
lisinopril 10 mg tablet 10 mg PO DAILY 11/09/24 11/15/24 11/14/24 08:00 History
simvastatin 80 mg tablet 80 mg PO QPM 11/09/24 11/15/24 11/14/24 22:00 History
Review of Systems
-
Hematologic/Lymphatic: Other (All 14 systems reviewed and negative except as stated above in the history of present illness.)
Vitals / Labs / Diagnostic Testing
Vital Signs
Temp Pulse Resp BP Pulse Ox
98.0 F 68 14 149/82 97
11/15/24 14:30 11/15/24 15:15 11/15/24 15:15 11/15/24 15:15 11/15/24 15:15
Lab Data
11/15/24 13:13
11/15/24 13:13
Laboratory Results
11/15/24
13:13
PT 14.6
INR 1.09
APTT 28.6
Diagnostic Testing:
Physical Exam
-
HEENT: Normocephalic
Cardiovascular: S1/S2
Respiratory: Clear and Non-Labored Respirations
GI: Soft
Neurology: Awake and Alert
Skin: Warm
General: Comfortable
Assessment
-
Patient with h/o carotid artery disease is s/p Right carotid endarterectomy with bovine pericardial patch angioplasty by vascular surgery service, POD #0
Continue observation following procedure
Follow neurovascular checks per protocol
ASA, Statins.
Follow BP monitoring and parameters as set by primary team
Cardiac history reviewed
Monitor on telemetry
Pain control per protocol
RASS goal 0
No prior history of pulmonary disease, remoite h/o smoking.
CXR reviewed indicating no acute disease
No prior PFTs for review
Encouraged IS
Diet advancement per protocol
Aspiration precautions
GI prophylaxis: Protonix
Cr at baseline, follow UO
Critical I/Os
Void trials
Replete electrolytes as needed
No signs/symptoms suspicious for infectious etiology at this time
Will observe off antibiotics for now
Follow temperatures/CBC
Hb and platelets postoperatively stable
DVT prophylaxis: Heparin
Other medical diagnoses:
- HTN, HLD
- DM-II
- CAD, medically managed
- h/o NSTEMI
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
Critical Care time 56 mins -- The patient is admitted for acute critical illness for the treatment of vital organ failure and/or prevention of further life-threatening conditions. Total care includes time spent in review of history, physical exam,
medications, hemodynamic/ventilator parameters, laboratory data, imaging and discussion with house staff, pharmacy, respiratory therapy, project eng, and nursing
Data:
CXR 11/2024: Unremarkable
CTA head/Neck 10/2024: 1. Occlusion of the left internal carotid artery as seen on previous ultrasound examination.
2. Large amount of bulky calcific plaque at the right carotid bulb with estimated greater than 80% narrowing of the right internal carotid artery.
3. No major branch vessel occlusion, dissection, or aneurysm formation.
4. No acute intracranial abnormality.
5. Incidental approximately 1 cm nodule left parotid gland as above, probably an intraparotid lymph node. As warranted this could be further evaluated with ultrasound.
[facility] 03/2024: 1. 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
2. Normal filling pressures (LVEDP = 15 mmHg at 98.5 kg).
ECHO 03/2024: LV ejection fraction is 60-65%. Basal to mid inferior and inferolateral
hypokinesis/akinesis.
Normal right ventricular size and function.
Aortic sclerosis without stenosis.
PFT 12/2021: Spirometry with moderate obstructive lung disease with significant response to bronchodilator challenge, note sub-optimal flow volume loop performance. Lung volumes normal. DLCO moderately decreased, noted difficulties performing test.
CT Chest 12/2021: Mild bronchial wall thickening, consistent with bronchitis. No evidence of pulmonary mass or pneumonia.
[2024-11-15 16:46] LABS: Glucose - Point of Care 164 mg/dl (70-99)
[2024-11-15] MEDS: LIPITOR 40 MG PO (17:14)
[2024-11-15] MEDS: NOVOLOG FLEXPEN-LOW RESISTANCE 1 UNITS SC (17:18)
[2024-11-15] MEDS: TOPROL XL PO (20:03)
[2024-11-15] MEDS: OCUVITE SOFTGEL 1 CAP PO (20:03)
--- NOTE | 2024-11-15 21:34 | PTCARENOTE ---
ax3 sinus- room air. neuro checks wnl see worklist. johnson gtt tapered to 20. saline running per orders. a paced. afebrile-voiding in urinal rt carotid site intact . pt upset about bedrest orders and being hospitalized- support given.
[2024-11-15 22:21] LABS: Glucose - Point of Care 245 mg/dl (70-99)
--- NOTE | 2024-11-15 22:37 | PTCARENOTE ---
pt frustrated with q1 neurochecks and does no keep ice to neck- does not want to comply with bedrest- reasoning for all of the above explained- pt uninterested.
--- NOTE | 2024-11-15 23:33 | PTCARENOTE ---
jhonson gtt weaned off neuro checks remain wnl- apaced afebrile
[2024-11-16] VITALS (47 sets, daily range): BP systolic 78–144; BP diastolic 46–102; BMI 30.4
[2024-11-16] MEDS: NSS 1000 IV (02:42)
[2024-11-16] MEDS: TYLENOL 650 MG PO ×3 (02:45→23:42)
[2024-11-16 03:46] LABS: Hematocrit 31.8 % (39.0-52.0); Hemoglobin 10.7 g/dL (13.0-18.0); Mean Corp Hgb Conc. 33.6 g/dL (33.0-37.0); Mean Corpuscular Volume 90.1 fL (80.0-94.0); Platelet Count 167 10^3/uL (130-400); Red Cell Dist. Width 14.1 % (11.5-14.5)
--- NOTE | 2024-11-16 03:56 | PTCARENOTE ---
Tylenol given for mild headache- neuro checks wnl. a paced johnson remains off
[2024-11-16 03:57] LABS: INR 1.08; PT 14.5 Sec (11.4-14.6)
[2024-11-16 03:58] LABS: APTT 30.2 Sec (23.4-35.0)
[2024-11-16 04:10] LABS: Blood Urea Nitrogen 18 mg/dl (9-20); Calcium 8.4 mg/dl (8.4-10.2); Carbon Dioxide 23 mmol/L (22-30); Chloride 110 mmol/L (98-107); Estimated Creatinine Clearance 116 ml/min; Glucose 179 mg/dl (70-99); Potassium 4.6 mmol/L (3.5-5.1); Sodium 139 mmol/L (135-145); eGFR > 60.00
--- NOTE | 2024-11-16 05:22 | PTCARENOTE ---
johnson gtt back on for soft bp- assessment unchanged
[2024-11-16] MEDS: MICRONASE 5 MG PO (07:27)
[2024-11-16] MEDS: NOVOLOG FLEXPEN-MODERATE RESISTANCE SC ×2 (07:27→16:24)
[2024-11-16] MEDS: LOW STRENGTH ASPIRIN 81 MG PO (07:27)
[2024-11-16] MEDS: FARXIGA 10 MG PO (07:27)
[2024-11-16] MEDS: OCUVITE SOFTGEL 1 CAP PO ×2 (07:27→19:48)
[2024-11-16 07:40] LABS: Glucose - Point of Care 149 mg/dl (70-99)
--- NOTE | 2024-11-16 08:27 | W.PN.VS ---
Addendum entered and electronically signed by Nikko Jenkins MD 11/16/24 08:55:
Seen and examined with JAE Zabala. Agree with findings as noted below. Patient without complaints. Right neck incision clean dry and intact. No hematoma. Neurologically no focal deficits, moves all extremities well. Tongue midline. Plan/as
discussed and noted below.
Original Note:
Today's Communication / Plan
-
Patient seen and examined at bedside with Dr. Nikko Jenkins M.D., below plan reviewed with attending.
Assessment/Plan
-
Assessment: 79-year-old male POD #1 Right carotid endarterectomy with bovine pericardial patch angioplasty and intraoperative EEG/SSEP monitoring
Plan:
Discontinue IV fluids
Continue to increase ambulation as tolerated
Continue home medications
Possible discharge later today
Subjective Data
-
Date of Service: November 16, 2024
Patient seen evaluated at chair side, offers no complaints. Reports well-managed postoperative pain at right neck surgical incision. Denies nausea, vomiting, fever, chills, and headache.
Objective Data
-
Vital Signs
Temp Pulse Resp BP Pulse Ox
98.3 F 71 16 144/67 96
11/16/24 03:37 11/16/24 07:30 11/16/24 07:30 11/16/24 07:00 11/16/24 07:30
Intake and Output
11/15/24 11/16/24 11/17/24
06:59 06:59 06:59
Intake Total 2264 / 2350
Output Total 925 / 925
Balance 1339 / 1425
Intake:
Oral fluids 720 / 720
IV fluids (Total) 1544 / 1630
Jeet gtt 84 / 90 6 / 6
Normosol 100 / 100
Nss 1,000 ml @ 80 mls/hr IV . 1360 / 1440 80 / 80
[id number] FINA Rx#:[id number]
Output:
Urine, Voided 925 / 925
Lab Results
11/16/24 03:32
11/16/24 03:32
Calcium 8.4 mg/dl (8.4-10.2) 11/16/24 03:32
Physical Exam
-
No apparent distress, resting in chair comfortably
Face symmetrical, right neck incision clean, dry, and intact, no evidence of hematoma or edema, tongue midline
No tachycardia
No dyspnea on room air
ABD rotund, nondistended
Moves bilateral upper extremities and lower extremities to command and spontaneously with equal strength
--- NOTE | 2024-11-16 08:51 | PTCARENOTE ---
Assumed care at 0700, 50% a-paced vs NSR with occas PVCs. SBP 144, johnson turned off. Pt agitated due to limited ambulation. Assisted OOB to chair without issue. Tolerated breakfast. R neck incision approximated, ecchymosis present. Call laura within
reach.
[2024-11-16] MEDS: TOPROL XL 50 MG PO (09:50)
--- NOTE | 2024-11-16 09:50 | W.PN.UPDATE ---
Update Note
Progress Note Update
Patient unfortunately had arterial line removed postoperatively due to malfunctioning per nursing staff in PACU yesterday, currently with blood pressure readings on bilateral arms via cuff of low 100 systolic without Jeet-Synephrine infusion (he did
require Jeet-Synephrine infusion intermittently overnight). Patient assessed at bedside and he denies lightheadedness, dizziness, headache, or any vision changes. Given his advanced cardiac history we will give his home beta-eladia of metoprolol
50 mg p.o. but hold his lisinopril 10 mg, continue to monitor. Reviewed this plan with on-call attending Dr. Nikko Jenkins M.D. who agrees.
--- NOTE | 2024-11-16 09:51 | PTCARENOTE ---
Lisinopril held and metoprolol given as directed by vascular team.
[2024-11-16] MEDS: NOVOLOG FLEXPEN-MODERATE RESISTANCE 1 UNITS SC (11:30)
[2024-11-16 11:41] LABS: Glucose - Point of Care 194 mg/dl (70-99)
--- NOTE | 2024-11-16 13:22 | CM ---
Post op R carotid endarterectomy.Pt is alert awake oriented.Spoke with she said he in independent with showers at home . She does assist with meds and med prep at home. He has not driven in next weeks.He uses a cane.
No VN/Snf HX.
Pharmacy [facility] [address]
PCP Dr Munoz
PLAN Home no anticipated needs
--- NOTE | 2024-11-16 14:55 | PTCARENOTE ---
pt walked the hernández without issue. BP WNL.
--- NOTE | 2024-11-16 15:15 | W.PN.INTV ---
Today's Communication / Plan
Recommendations
- Hold Lisinopril
- Continue telemetry monitoring
- Switch to Metoprolol XL 50 daily for now (rather than BID), BP 92/53.
Assessment
-
Patient with h/o carotid artery disease is s/p Right carotid endarterectomy with bovine pericardial patch angioplasty by vascular surgery service, POD #1
Continue observation following procedure
Follow neurovascular checks per protocol
ASA, Lipitor, metoprolol.
Follow BP monitoring and parameters as set by primary team
Cardiac history reviewed
Monitor on telemetry
Pain control per protocol
RASS goal 0
No prior history of pulmonary disease, remote h/o smoking.
CXR reviewed indicating no acute disease
No prior PFTs for review
Encouraged IS
Diet advancement per protocol
Aspiration precautions
GI prophylaxis: Protonix
Cr at baseline, follow UO
Critical I/Os
Void trials
Replete electrolytes as needed
No signs/symptoms suspicious for infectious etiology at this time
Will observe off antibiotics for now
Follow temperatures/CBC
Hb and platelets postoperatively stable
DVT prophylaxis: Heparin
Other medical diagnoses:
- HTN. Borderline low. Lisinopril held. Metoprolol 50 mg given per Vascular service. BP continues to be soft. Asymptomatic. D/w Vascular surgery service, plan to keep patient overnight for closer monitoring.
- HLD
- DM-II
- CAD, medically managed
- h/o NSTEMI
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
Critical Care time 56 mins -- The patient is admitted for acute critical illness for the treatment of vital organ failure and/or prevention of further life-threatening conditions. Total care includes time spent in review of history, physical exam,
medications, hemodynamic/ventilator parameters, laboratory data, imaging and discussion with house staff, pharmacy, respiratory therapy, solar field service technician, and nursing
Data:
CXR 11/2024: Unremarkable
CTA head/Neck 10/2024: 1. Occlusion of the left internal carotid artery as seen on previous ultrasound examination.
2. Large amount of bulky calcific plaque at the right carotid bulb with estimated greater than 80% narrowing of the right internal carotid artery.
3. No major branch vessel occlusion, dissection, or aneurysm formation.
4. No acute intracranial abnormality.
5. Incidental approximately 1 cm nodule left parotid gland as above, probably an intraparotid lymph node. As warranted this could be further evaluated with ultrasound.
[facility] 03/2024: 1. 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
2. Normal filling pressures (LVEDP = 15 mmHg at 98.5 kg).
ECHO 03/2024: LV ejection fraction is 60-65%. Basal to mid inferior and inferolateral
hypokinesis/akinesis.
Normal right ventricular size and function.
Aortic sclerosis without stenosis.
PFT 12/2021: Spirometry with moderate obstructive lung disease with significant response to bronchodilator challenge, note sub-optimal flow volume loop performance. Lung volumes normal. DLCO moderately decreased, noted difficulties performing test.
CT Chest 12/2021: Mild bronchial wall thickening, consistent with bronchitis. No evidence of pulmonary mass or pneumonia.
Subjective Dataa
Subjective Data
Date of Service:
Date of Service: November 16, 2024
Subjective:
Patient comfortably sitting in bed in no acute distress.
Review of Systems
Genitourinary: Other (All 14 systems reviewed and negative except as stated above in the history of present illness.)
Objective Data
Data Reviewed
Vital Signs / I&O / Oxygen:
Vital Signs
Temp Pulse Resp BP Pulse Ox
97.4 F 69 21 92/53 92
11/16/24 11:00 11/16/24 14:00 11/16/24 14:00 11/16/24 13:17 11/16/24 13:45
Intake and Output
11/15/24 11/16/24 11/17/24
06:59 06:59 06:59
Intake Total 2264 / 2350 566 / 566
Output Total 925 / 925 450 / 450
Balance 1339 / 1425 116 / 116
SaO2 92
Nasal Cannula flow liters per 2
minute
Physical Exam
General: Comfortable
HEENT: Normocephalic
Cardiovascular: S1-S2
Respiratory: Clear
GI: Non Distended
Neurology: Awake and Alert
Skin: Warm
Labs/Micro/Reports
Lab Data
11/16/24 03:32
11/16/24 03:32
Laboratory Results
11/16/24
03:32
PT 14.5
INR 1.08
APTT 30.2
[2024-11-16] MEDS: HEPARIN 5000 UNITS SC ×2 (16:24→23:43)
[2024-11-16 16:38] LABS: Glucose - Point of Care 105 mg/dl (70-99)
[2024-11-16] MEDS: LIPITOR 40 MG PO (18:00)
[2024-11-16] MEDS: TOPROL XL 25 MG PO (19:48)
[2024-11-16 21:57] LABS: Glucose - Point of Care 152 mg/dl (70-99)
[2024-11-16] MEDS: BENADRYL 25 MG PO (23:42)
[2024-11-17] VITALS (11 sets, daily range): BP systolic 104–136; BP diastolic 61–84; BMI 30.8
[2024-11-17 03:41] LABS: Hematocrit 33.1 % (39.0-52.0); Hemoglobin 11.2 g/dL (13.0-18.0); Mean Corp Hgb Conc. 33.8 g/dL (33.0-37.0); Mean Corpuscular Volume 89.9 fL (80.0-94.0); Platelet Count 158 10^3/uL (130-400); Red Cell Dist. Width 14.4 % (11.5-14.5)
--- NOTE | 2024-11-17 04:45 | PTCARENOTE ---
pt irritable and agitated- saying he should never have gotten this surgery and is going home today no matter what- explained to him he can discuss with his Dr,s today and that we are monitoring his vitals, labs sent . uninterested in receiving
support
[2024-11-17 05:08] LABS: Blood Urea Nitrogen 20 mg/dl (9-20); Calcium 9.2 mg/dl (8.4-10.2); Carbon Dioxide 23 mmol/L (22-30); Chloride 108 mmol/L (98-107); Estimated Creatinine Clearance 87 ml/min; Glucose 153 mg/dl (70-99); Potassium 4.1 mmol/L (3.5-5.1); Sodium 141 mmol/L (135-145); eGFR > 60.00
--- NOTE | 2024-11-17 05:47 | PTCARENOTE ---
ax3 neuro checks wnl see 50% a paced with sinus pvc's. afebrile vitals wnl . 96% on room air .rt neck sx site with glue intact. ambulated to bathroom for bm. peripheral iv's capped . pt has harsh off of fluids and johnson since yesterday morning.
tolerating his diet . 2200 glucose was 152- am labs sent. pt very eager for discharge and is hoping to be discharged today
--- NOTE | 2024-11-17 07:45 | W.PN.VS ---
Today's Communication / Plan
-
as above
Assessment/Plan
-
Assessment: 79-year-old male POD #2 Right carotid endarterectomy with bovine pericardial patch angioplasty and intraoperative EEG/SSEP monitoring
Plan:
Discontinue IV fluids
Continue to increase ambulation as tolerated
Continue home medications
discharge home today as BP improved
Subjective Data
-
Date of Service: November 17, 2024
No acute events. Says he feels tired but well.
Objective Data
-
Vital Signs
Temp Pulse Resp BP Pulse Ox
98.4 F 77 29 114/67 96
11/17/24 07:33 11/17/24 06:00 11/17/24 06:00 11/17/24 06:00 11/16/24 21:40
Intake and Output
11/16/24 11/17/24 11/18/24
06:59 06:59 06:59
Intake Total 2264 / 2350 926 / 926
Output Total 925 / 925 1450 / 1450
Balance 1339 / 1425 -524 / -524
Intake:
Oral fluids 720 / 720 840 / 840
IV fluids (Total) 1544 / 1630 86 / 86
Jeet gtt 84 / 90 6 / 6
Normosol 100 / 100
Nss 1,000 ml @ 80 mls/hr IV . 1360 / 1440 80 / 80
[id number] [facility] Rx#:[id number]
Output:
Urine, Voided 925 / 925 1450 / 1450
Lab Results
11/17/24 03:27
11/17/24 04:29
Calcium 9.2 mg/dl (8.4-10.2) 11/17/24 04:29
Physical Exam
-
NAD
Neck incision c/d/i, no hematoma
[2024-11-17 08:14] LABS: Glucose - Point of Care 143 mg/dl (70-99)
[2024-11-17] MEDS: NOVOLOG FLEXPEN-MODERATE RESISTANCE SC ×2 (08:22→11:45)
[2024-11-17] MEDS: OCUVITE SOFTGEL 1 CAP PO (08:29)
[2024-11-17] MEDS: LOW STRENGTH ASPIRIN 81 MG PO (08:29)
[2024-11-17] MEDS: MICRONASE 5 MG PO (08:29)
[2024-11-17] MEDS: FARXIGA 10 MG PO (08:29)
[2024-11-17] MEDS: HEPARIN 5000 UNITS SC (08:29)
[2024-11-17] MEDS: TOPROL XL 25 MG PO (08:29)
--- NOTE | 2024-11-17 09:25 | CM ---
Home today with spouse, IMM completed.
Plan; Home
--- NOTE | 2024-11-17 09:53 | PTCARENOTE ---
Rec'd pt at 0700. Pt AAOx3, follows commands, PLEITEZ. Right CEA, incision with surgical adhesive intact/STICK FEEDER. MOnitor SR/A-paced. Lungs CTA. +BS, abd soft/round. Vdg abhijeet urine in urinal. For discharge home today.
[2024-11-17 10:44] LABS: Glucose - Point of Care 128 mg/dl (70-99)
--- NOTE | 2024-11-17 11:49 | PTCARENOTE ---
Pt and wanted to wait until after he ate breakfast to go home. Upon walking into the room after pt ate, noted peripheral IV from RH to be laying on table. When asked about it, pt's stated pt removed it himself because he was anxious to go
home and she told him not to remove the other one. Pt educated on not removed IV himself, pt stated 'it's fine'. Other peripheral IV removed by RN. Discharge instructions reviewed with pt and , both verbalized understanding. Pt discharged to
home at approx 1150.
== END 2024-11-17 12:20 | disposition home or self-care (01) | DRG 39 ==
LOC: ICU 08:22
PROVIDERS: Nurse Practitioner; Nurse Practitioner Acute Care; ADMITTING PHYSICIAN Surgery Vascular Surgery; CONSULT PHYSICIAN Internal Medicine; FAMILY PHYSICIAN Student in an Organized Health Care Education/Training Program; PRIMARYCARE PHYSICIAN Internal Medicine
PROC: 03UK0KZ Supplement Right Internal Carotid Artery with Nonautologous Tissue Substitute, Open Approach (ICD-10-PCS; 2024-11-15)
PROC: 03CK0ZZ Extirpation of Matter from Right Internal Carotid Artery, Open Approach (ICD-10-PCS; 2024-11-15)
DX: I65.21 Occlusion and stenosis of right carotid artery (principal); E11.9 Type 2 diabetes mellitus without complications; I10 Essential (primary) hypertension; I25.10 Atherosclerotic heart disease of native coronary artery without angina pectoris; E78.5 Hyperlipidemia, unspecified; I70.0 Atherosclerosis of aorta; I25.2 Old myocardial infarction; Z95.810 Presence of automatic (implantable) cardiac defibrillator; Z79.82 Long term (current) use of aspirin; Z79.84 Long term (current) use of oral hypoglycemic drugs; Z90.49 Acquired absence of other specified parts of digestive tract; Z87.891 Personal history of nicotine dependence
CPT/HCPCS: 35301; 36415; 71046; 80048; 82962; 85025; 85027; 85610; 85730; 86850; 86900; 86901; 88304; 88311; 95938; 95941; 95955

== ENCOUNTER → 2025-01-01 09:31 | Outpatient (REF) | payer OTHER, SELFPAY | LOC: RAD 09:31 | PROVIDERS: ATTENDING PHYSICIAN Registered Nurse; FAMILY PHYSICIAN Student in an Organized Health Care Education/Training Program | DX: I65.21 Occlusion and stenosis of right carotid artery (principal); I65.22 Occlusion and stenosis of left carotid artery | CPT/HCPCS: 93880 ==